=== PATIENT | female | born 1985 | race Caucasian/White ===

== ENCOUNTER → 2018-04-13 09:57 | Outpatient (CLI) | payer OTHER, SELFPAY | PROVIDERS: PCP Family Medicine; Visit Provider Internal Medicine Gastroenterology | DX: R19.7 Diarrhea, unspecified (principal); Z53.9 Procedure and treatment not carried out, unspecified reason ==

== ENCOUNTER → 2018-12-03 07:39 | Outpatient (CLI) | payer OTHER, SELFPAY ==
[2018-12-03 08:07] LABS: Appearance Urine UA CLOUDY; Bilirubin Urine UA NEGATIVE (NEGATIVE); Color Urine UA YELLOW; Glucose Urine UA NEGATIVE (Negative); Ketones Urine UA NEGATIVE (NEGATIVE); Leukocyte Esterase Urine UA 1+ (NEGATIVE); Nitrite Urine UA POSITIVE (Negative); Occult Blood Urine UA 3+ (Negative); Protein Urine UA 2+ (Negative); Specific Gravity Urine UA >=1.030 (1.000-1.035); Urobilinogen Urine UA 0.2 E.U./dL (0.2)
[2018-12-03 08:14] LABS: Bacteria Urine Many (>30); Culture Indicated Urine Specimen Cultured; RBC Urine 30-100/HPF (0-5/HPF); WBC Urine >100/HPF (0-5/HPF)
== END ==
PROVIDERS: PCP Family Medicine; Visit Provider Family Medicine
DX: R30.0 Dysuria (principal)
CPT/HCPCS: 81001; 87077; 87086; 87186

== ENCOUNTER 2019-08-02 23:53 | Emergency (ER) | payer OTHER, SELFPAY | END 2019-08-03 02:09 | disposition home or self-care (01) | LOC: ED 03-14 13:14 | PROVIDERS: Emergency Provider Emergency Medicine; PCP Family Medicine | CPT/HCPCS: 93005; 99282 ==

== ENCOUNTER 2019-08-02 23:53 | Emergency (ER) | payer OTHER, SELFPAY ==
[2019-08-03 00:04] VITALS: BP 119/66; PULSE 105; RESP 14; TEMP 36.8; O2SAT 100
[2019-08-03] MEDS: SODIUM CHLORIDE 0.9% 1,000 ML 1000 ML IV (00:47)
--- NOTE | 2019-08-03 00:48 | ED_ITS ---
HPI - Syncope General Chief Complaint: Syncope Stated Complaint: collapsed at home Time Seen by Provider: 08/03/19 00:21 Source: patient and family Mode of arrival: ambulatory Limitations: no limitations History of Present Illness HPI narrative: 34-year-old female former smoker with history of bipolar presents a syncopal episode which was witnessed by her . Three weeks ago the patient stopped using marijuana and over the past week or so the patient has become increasingly anxious and has had thoughts of self-harm without a plan or any intent to act. She has a therapist and a prescriber in the community and had recently been given a prescription for Seroquel and also takes Lyrica. Today the patient smoked marijuana for the 1st time in 3 weeks, took double the dose of her normal ear cup, and 4 times the dose of her normal Seroquel and then began to feel poorly, collapsed and was unresponsive for about 5 seconds before a near complete return to normal. She did not have any injuries, did not bite her tongue and did not lose control of her bladder. She denies any ongoing suicidal or homicidal ideation. She has an appointment later today with her therapist complaint: loss of consciousness Onset (ago): hour(s) Prodromal symptoms: lightheaded Witnessed: yes - by bystander Context: new medication and illicit drug use Injuries sustained associated with event: none Current symptoms: lightheaded Treatments prior to arrival: none Related Data Home Medications Medication Instructions Recorded Confirmed acetylcarnitine 500 mg capsule 500 mg PO DAILY cap 07/23/18 05/25/19 biotin 5 mg capsule 8 mg PO DAILY cap 07/23/18 05/25/19 digestive enzymes 1 cap PO TID cap 07/23/18 05/25/19 magnesium glycinate 100 mg tablet 120 mg PO TID tab 07/23/18 05/25/19 methylsulfonylmethane 1,000 mg 3,000 mg PO ONCE cap 07/23/18 05/25/19 capsule vit [id number] factor-folic 1,000 tab PO tab 07/23/18 05/25/19 acid cmb#2 500 mcg-20 mg-800 mcg tablet glutamine 500 mg capsule 9 gram PO DAILY cap 12/11/18 05/25/19 Previous Rx's Medication Instructions Recorded pregabalin 100 mg capsule 100 mg PO BID #180 cap 03/15/19 promethazine 25 mg tablet 25 mg PO Q6HP PRN #60 tab 03/30/19 propranolol 20 mg tablet 20 mg PO BID #180 tab 03/30/19 dextroamphetamine-amphetamine ER 20 mg PO DAILY #30 cap 04/02/19 20 mg 24hr capsule,extend release dextroamphetamine-amphetamine ER 20 mg PO QAM #30 cap 05/25/19 20 mg 24hr capsule,extend release ziprasidone HCl 60 mg capsule 60 mg PO QPM #30 cap 05/27/19 quetiapine 25 mg tablet 25 mg PO BEDTIME #30 tab 07/22/19 Allergies Allergy/AdvReac Type Severity Reaction Status Date / Time duloxetine [DULOXETINE] Allergy Mild MANIC Unverified 03/15/19 08:52 Sulfa (Sulfonamide Allergy Mild HIVES Unverified 03/15/19 08:52 Antibiotics) [SULFA (SULFONAMIDE ANTIBIOTICS)] methylprednisolone Allergy Unknown Unverified 03/15/19 08:52 [From MEDROL] venlafaxine AdvReac Verified 03/15/19 08:52 Review of Systems Constitutional Constitutional: Denies chills, Denies fatigue, Denies fever(s), Denies frequent falls, Denies lethargy and Denies weakness Eyes Eyes: Denies change in vision, Denies eye discharge, Denies irritation and Denies loss of vision ENT Ears, Nose, Mouth, and Throat: Denies change in voice, Denies dizziness, Denies neck pain, Denies sore throat and Denies throat swelling Cardiovascular Cardiovascular: Denies chest pain, Reports syncope, Denies irregular heart rhythm, Reports lightheadedness, Denies palpitations, Denies dyspnea, Denies dyspnea on exertion and Denies orthopnea Respiratory Respiratory: Denies cough, Denies dyspnea, Denies dyspnea on exertion and Denies wheezing Gastrointestinal Gastrointestinal: Denies abdominal pain, Denies change in bowel habits, Denies diarrhea, Denies nausea and Denies vomiting Genitourinary Genitourinary: Denies hematuria, Denies flank pain, Denies urinary incontinence and Denies urinary urgency Musculoskeletal Musculoskeletal: Denies back pain, Denies muscle weakness, Denies neck pain, Denies numbness and Denies tingling Integumentary/Breasts Skin/Breast: Denies pruritus, Denies erythema, Denies rash and Denies wounds Neurologic Neurologic: Denies behavioral changes, Denies confusion, Denies dizziness, Reports syncope, Denies frequent falls, Denies loss of vision, Denies numbness, Denies tingling and Denies weakness Psychiatric Psychiatric: Denies anxiety, Denies behavioral changes, Denies confusion, Denies depression, Denies homicidal ideation and Denies suicidal ideation Endocrine Endocrine: Denies fatigue, Denies flushing and Denies palpitations Hematologic/Lymphatic Hematologic/Lymphatic: Denies easy bruising Allergic/Immunologic Allergic/Immunologic: Denies urticaria, Denies throat swelling and Denies wheezing FOR[facility]LY [facility] Medical History Abnormal Pap smear of cervix (Resolved 2005) Acne (Chronic 1995) ADHD (attention deficit hyperactivity disorder) (Chronic 1993) Anorexia nervosa (Chronic 1998) Anxiety (Chronic 1998) Bipolar disorder (Chronic 2005) Chicken pox (Resolved 1988) Chronic back pain (Chronic 1994) Chronic headaches (Chronic 1999) Crohn disease (Chronic) Depression (Chronic 2005) Foot pain (Chronic 2003) Fractures (Resolved 2003) Gastritis (Chronic 2014) Migraines (Chronic 1999) Ovarian cyst (Chronic 2014) Pelvis tilted (Chronic 2007) Personality disorder (Chronic 2005) PTSD (post-traumatic stress disorder) (Chronic 2005) Shoulder pain (Chronic 2005) Surgical History Anesthesia (Resolved) History of bilateral inguinal hernia repair (Resolved 1988) History of third molar tooth extraction (Resolved 1999) Status post laparoscopic cholecystectomy (Resolved 2009) Family History (Updated 08/18/18 @ 12:42 by Ioana Stafford) Father Age: 63 Cancer Diabetes mellitus Hypertension High cholesterol Mental health problem Prostate cancer Grandfather Cancer Hypertension Colon cancer Grandmother Cancer Diabetes mellitus Heart disease Hypertension High cholesterol Mental health problem Stroke Breast cancer Dementia Grandmother Diabetes mellitus Heart disease Hypertension Mental health problem Sister Age: 39 Hypertension Mother No problems noted. Grandfather No problems noted. Social History marital status: number of children: 1 household members: family lives independently: Yes caregiver/support person: No housing: house Smoking Status: Former smoker second hand exposure: No alcohol intake: current substance use type: does not use Family History Father Age: 63 Cancer Diabetes mellitus Hypertension High cholesterol Mental health problem Prostate cancer Grandfather Cancer Hypertension Colon cancer Grandmother Cancer Diabetes mellitus Heart disease Hypertension High cholesterol Mental health problem Stroke Breast cancer Dementia Grandmother Diabetes mellitus Heart disease Hypertension Mental health problem Sister Age: 39 Hypertension Mother No problems noted. Grandfather No problems noted. Social History marital status: number of children: 1 household members: family lives independently: Yes caregiver/support person: No housing: house Smoking Status: Former smoker second hand exposure: No alcohol intake: current substance use type: does not use Exam Narrative Exam Narrative: GENERAL: [34] year old patient appears stated age. Well- nourished, well-developed patient, in mild distress. HEAD: Atraumatic. Normocephalic. EYES: Pupils equal round and reactive. Extraocular motions intact. No scleral icterus. No injection or drainage. ENT: Nose without bleeding, purulent drainage. Throat without erythema, tonsillar hypertrophy or exudate. Airway patent. NECK: Trachea midline. Non tender CARDIOVASCULAR: Regular rate and rhythm without murmurs, gallops, or rubs. RESPIRATORY: Clear to auscultation. Breath sounds equal bilaterally. No wheezes, rales, or rhonchi. GASTROINTESTINAL: Abdomen soft, non-tender, nondistended. EXTREMITIES: No edema or joint tenderness. BACK: Nontender without deformity or crepitance. No flank tenderness. NEURO: AOx3. SKIN: No rash or erythema of visible areas Initial Vital Signs Initial Vital Signs: Vital Signs Temperature 98.2 F 08/03/19 00:04 Pulse Rate 105 H 08/03/19 00:04 Respiratory Rate 14 08/03/19 00:04 Blood Pressure 119/66 08/03/19 00:04 Pulse Oximetry 100 08/03/19 00:04 Course Orders Ordered: ED Orders 08/03/19 00:40 Complete Blood Count AUTO DIFF Stat Comprehensive Metabolic Panel Stat Magnesium Stat Prolactin Stat Troponin & CK Cardiac Panel Stat Discontinued Medications Sodium Chloride (Normal Saline 0.9%) 1,000 mls @ 1,000 mls/hr IV BOLUS ONE Stop: 08/03/19 01:22 Last Admin: 08/03/19 00:47 Dose: 1,000 mls/hr Documented by: BETTY Vital Signs Vital signs: Vital Signs - 8 hr 08/03/19 00:04 Temperature 98.2 F Pulse Rate 105 H Respiratory Rate 14 Blood Pressure 119/66 Pulse Oximetry 100 MDM - Syncope Lab Data Result diagrams: 08/03/19 00:40 08/03/19 00:40 Labs: Lab Results 08/03/19 08/03/19 08/03/19 Range/Units 00:40 00:40 00:40 WBC 6.6 (4.5-11.0) X10^3/uL RBC 4.39 (4.0-5.2) X10^6/uL Hgb 13.3 (12.0-16.0) g/dL Hct 39.3 (36-46) % MCV 89.5 (80-100) fL MCH 30.4 (26-34) PG MCHC 33.9 (30-36) % RDW 13.7 (11.6-14.8) % Plt Count 269 (150-400) X10^3/uL Neut % (Auto) 64.0 (50-75) % Lymph % (Auto) 28.8 (25-40) % Haines % (Auto) 4.8 (3-14) % Eos % (Auto) 1.7 L (2-4) % Baso % (Auto) 0.7 (0-2) % Neut # (Auto) 4200 (5858-8006) /uL Lymph # (Auto) 1900 (8458-2195) /uL Haines # (Auto) 300 (0-900) /uL Eos # (Auto) 100 (0-450) /uL Baso # (Auto) 0 (0-100) /uL Sodium 138 (137-145) mmol/L Potassium 3.4 (3.4-5.1) mmol/L Chloride 104 (98-107) mmol/L Carbon Dioxide 28 (22-32) mmol/L BUN 19 H (7-17) mg/dL Creatinine 0.60 (0.52-1.04) mg/dL Estimated GFR > 60.0 (>60) mL/min BUN/Creatinine Ratio 31.7 H (6-22) Glucose 154 H (70-100) mg/dL Calcium 8.7 (8.4-10.2) mg/dL Magnesium 2.0 (1.6-2.3) mg/dL Total Bilirubin 0.3 (0.2-1.3) mg/dL AST 21 (14-36) IU/L ALT 20 (9-52) IU/L Alkaline Phosphatase 62 (38-126) U/L Total Creatine Kinase 58 (30-135) U/L CK-MB (CK-2) TNP CK-MB (CK-2) Rel Index TNP Troponin I < 0.012 (0.01-0.034) ng/mL Total Protein 6.7 (6.3-8.2) g/dL Albumin 4.1 (3.5-5.0) g/dL Globulin 2.6 (1.7-4.1) g/dL Albumin/Globulin Ratio 1.6 (1.0-2.8) Prolactin 13.5 (3.0-18.6) ng/mL Urine Dip Bedside Urine Glucose Negative Bedside Urine Bilirubin - Negative Bedside Urine Ketone ++ 40 Urine Specific [place] 1.025 Bedside Urine Occult Blood +/- Bedside Urine pH 5.5 Bedside Urine Protein +/- 15 Bedside Urine Urobilinogen +/- 1mg Bedside Urine Nitrite - Negative Bedside Urine Leukocytes - Negative Esterase ECG Data Attestation: I personally reviewed and interpreted this ECG as follows: Prior ECG tracings: not available for review Interpretation: EKG is normal sinus rhythm rate [ 82] and free of any signs of ischemia or ectopy. No ST segmental elevation or depression. No T wave inversions MDM Narrative Medical decision making narrative: Multiple etiologies for patient's symptoms considered including: [Dehydration versus accidental overdose versus multifactorial (change in medication dosages with addition of THC) versus other] Patient's symptoms improved or duration of stay with above-stated therapies. Findings and discharge diagnosis discussed with patient/family followed by verbalization of understanding Return precautions discussed with patient/family whom verbalize understanding. Discharge Plan Departure Patient Disposition: Home Clinical Impression: Syncope and collapse Instructions: DI for Syncope in Adults (Fainting) Activity Restrictions/Additional Instructions: *You have been diagnosed with [syncope and collapse, likely due to combination of alterations in dosages of medications and consumption of THC] *What to do: *Take medications as directed *Follow up with your therapist later today as planned *Return to ER if you should have any new, worsening or concerning symptoms Prescriptions: No Action methylsulfonylmethane 1,000 mg capsule 3,000 mg PO ONCE RF: 0 digestive enzymes capsule 1 cap PO TID RF: 0 biotin 5 mg capsule 8 mg PO DAILY RF: 0 acetylcarnitine 500 mg capsule 500 mg PO DAILY RF: 0 magnesium glycinate [Mag Glycinate] 100 mg tablet 120 mg PO TID RF: 0 vit [id number] fact-FA cmb #2 [Intrinsi [id number]] 500-20-800 mcg-mg-mcg tablet 1,000 tab PO RF: 0 glutamine [L-Glutamine] 500 mg capsule 9 gram PO DAILY RF: 0 dextroamphetamine-amphetamine 20 mg capsule,extended release 24hr 20 mg PO DAILY Qty: 30 RF: 0 dextroamphetamine-amphetamine [Adderall XR] 20 mg capsule,extended release 24hr 20 mg PO QAM Qty: 30 RF: 0 promethazine 25 mg tablet 25 mg PO Q6HP PRN (Reason: nausea and vomiting) Qty: 60 RF: 12 propranolol 20 mg tablet 20 mg PO BID Qty: 180 RF: 3 ziprasidone HCl 60 mg capsule 60 mg PO QPM Qty: 30 RF: 3 quetiapine 25 mg tablet 25 mg PO BEDTIME Qty: 30 RF: 0 Lyrica 100 mg capsule 100 mg PO BID Qty: 180 RF: 3 Referrals: Mayte Martinez MD [Primary Care Provider] -
[2019-08-03 01:10] LABS: Alanine Aminotransferase 20 IU/L (9-52); Albumin 4.1 g/dL (3.5-5.0); Albumin Globulin Ratio 1.6 (1.0-2.8); Alkaline Phosphatase 62 U/L (38-126); Aspartate Aminotransferase 21 IU/L (14-36); BUN Creatinine Ratio 31.7 (6-22); Bilirubin Total 0.3 mg/dL (0.2-1.3); Blood Urea Nitrogen 19 mg/dL (7-17); Calcium 8.7 mg/dL (8.4-10.2); Carbon Dioxide 28 mmol/L (22-32); Chloride 104 mmol/L (98-107); Creatine Kinase 58 U/L (30-135); Estimated Glomerular Filt Rate > 60.0 mL/min (>60); Globulin 2.6 g/dL (1.7-4.1); Glucose 154 mg/dL (70-100); HEMOLYSIS < 15 (0-50); Potassium 3.4 mmol/L (3.4-5.1); Sodium 138 mmol/L (137-145); Total Protein 6.7 g/dL (6.3-8.2)
[2019-08-03 01:17] LABS: Add Manual Diff / Slide Review NO; Basophils Absolute Auto 0 /uL (0-100); Basophils Percent Auto 0.7 % (0-2); Eosinophils Absolute Auto 100 /uL (0-450); Eosinophils Percent Auto 1.7 % (2-4); Hematocrit 39.3 % (36-46); Hemoglobin 13.3 g/dL (12.0-16.0); Lymphocytes Absolute Auto 1900 /uL (1100-4500); Lymphocytes Percent Auto 28.8 % (25-40); Mean Corpuscular HGB Conc 33.9 % (30-36); Mean Corpuscular Hemoglobin 30.4 PG (26-34); Mean Corpuscular Volume 89.5 fL (80-100); Monocytes Absolute Auto 300 /uL (0-900); Monocytes Percent Auto 4.8 % (3-14); Neutrophils Absolute Auto 4200 /uL (1500-7000); Platelet Count 269 X10^3/uL (150-400); Red Blood Cell Count 4.39 X10^6/uL (4.0-5.2); Red Cell Distribution Width 13.7 % (11.6-14.8); White Blood Cell Count 6.6 X10^3/uL (4.5-11.0)
[2019-08-03 01:22] LABS: Troponin I < 0.012 ng/mL (0.01-0.034)
[2019-08-03 01:46] LABS: Prolactin 13.5 ng/mL (3.0-18.6)
[2019-08-03 02:07] VITALS: BP 108/66; PULSE 79; RESP 14; O2SAT 99
== END 2019-08-03 02:09 | disposition home or self-care (01) ==
PROVIDERS: Emergency Provider Emergency Medicine; PCP Family Medicine
DX: R55 Syncope and collapse (principal)
CPT/HCPCS: 36591; 80053; 81003; 82550; 83735; 84146; 84484; 85025; 96360; 99283; 99284

== ENCOUNTER → 2019-12-22 13:11 | Outpatient (CLI) | payer OTHER, SELFPAY ==
[2019-12-22 13:22] LABS: Bacteria Urine None Seen
[2019-12-22 14:19] LABS: Appearance Urine UA CLEAR; Bilirubin Urine UA NEGATIVE (NEGATIVE); Color Urine UA YELLOW; Glucose Urine UA NEGATIVE (Negative); Ketones Urine UA NEGATIVE (NEGATIVE); Leukocyte Esterase Urine UA TRACE (NEGATIVE); Nitrite Urine UA NEGATIVE (Negative); Occult Blood Urine UA TRACE-LYSED (Negative); Protein Urine UA NEGATIVE (Negative); Urobilinogen Urine UA 0.2 E.U./dL (0.2)
[2019-12-22 14:21] LABS: pH Urine UA 6.5 (4.5-8.0)
[2019-12-22 14:26] LABS: RBC Urine 0-1/HPF (0-5/HPF)
[2019-12-22 14:27] LABS: Culture Indicated Urine Cult Not Indicated; WBC Urine 0-1/HPF (0-5/HPF)
== END ==
PROVIDERS: PCP Family Medicine; Visit Provider Family Medicine
DX: R30.0 Dysuria (principal)
CPT/HCPCS: 81001

== ENCOUNTER → 2020-02-15 14:28 | Outpatient (CLI) | payer OTHER, SELFPAY ==
[2020-02-15 15:38] LABS: C-Reactive Protein Quant < 0.5 mg/dL (<1.0)
[2020-02-15 15:39] LABS: Prolactin 10.9 ng/mL (3.0-18.6)
[2020-02-15 16:09] LABS: Follicle Stimulating Hormone 6.52 mIU/mL; Luteinizing Hormone 1.82 mIU/mL
[2020-02-15 16:22] LABS: TSH w/ Reflex to FT4 0.94 uIU/mL (0.47-4.68)
[2020-02-15 16:25] LABS: Estradiol, Total 18.2 pg/mL
[2020-02-17 09:27] LABS: Estrogen 71 pg/mL (.)
== END ==
PROVIDERS: PCP Family Medicine; Referring Provider Family Medicine; Visit Provider Family Medicine
DX: N91.2 Amenorrhea, unspecified (principal); K50.90 Crohn's disease, unspecified, without complications
CPT/HCPCS: 36415; 82670; 82672; 83001; 83002; 84146; 84443; 86140

== ENCOUNTER 2020-05-20 16:52 | Emergency (ER) | payer OTHER, SELFPAY ==
--- NOTE | 2020-05-20 16:59 | PC.NURSE ---
Pt refusing gown, covering of any kind- wants to be naked. Told her that we could not accommodate that request in the ED and maintain her privacy. She agreed to be covered by a gown.
[2020-05-20 17:13] VITALS: BP 125/56; PULSE 82; RESP 16; TEMP 36.8; O2SAT 99; BMI 58.6
[2020-05-20] MEDS: SODIUM CHLORIDE 0.9% 1,000 ML 1000 ML IV (17:22)
[2020-05-20] MEDS: ONDANSETRON 4 MG/2 ML INJ IV (17:23)
[2020-05-20 17:33] LABS: Add Manual Diff / Slide Review NO; Basophils Absolute Auto 0 /uL (0-100); Basophils Percent Auto 0.3 % (0-2); Eosinophils Absolute Auto 300 /uL (0-450); Eosinophils Percent Auto 3.5 % (2-4); Hematocrit 41.4 % (36-46); Hemoglobin 14.5 g/dL (12.0-16.0); Lymphocytes Absolute Auto 2400 /uL (1100-4500); Lymphocytes Percent Auto 25.5 % (25-40); Mean Corpuscular Hemoglobin 31.8 PG (26-34); Mean Corpuscular Volume 90.9 fL (80-100); Monocytes Absolute Auto 300 /uL (0-900); Monocytes Percent Auto 3.7 % (3-14); Neutrophils Absolute Auto 6300 /uL (1500-7000); Platelet Count 254 X10^3/uL (150-400); Red Blood Cell Count 4.56 X10^6/uL (4.0-5.2); Red Cell Distribution Width 13.6 % (11.6-14.8); White Blood Cell Count 9.4 X10^3/uL (4.5-11.0)
[2020-05-20 17:35] LABS: Prothrombin Time 11.6 SECONDS (10.1-12.7)
[2020-05-20 17:38] LABS: PTT Partial Thromboplastin Tim 28 SECONDS (26.4-36.2)
--- NOTE | 2020-05-20 17:40 | ED_ITS ---
HPI - Abdominal Pain <Janie ArriagaALONSO - Last Filed: 05/20/20 20:56> General Chief Complaint: Abdominal Pain Stated Complaint: abd pain Time Seen by Provider: 05/20/20 16:55 Source: EMS Mode of arrival: EMS History of Present Illness HPI narrative: 35yo female with a history of Crohn's, presents emergency depar tment complaining of diffuse abdominal pain starting today. Patient states she has had watery diarrhea for the past 3-4 days. She was able to eat some food today, she then felt sudden severe abdominal pain in RUQ and LUQ pain with vomiting. Patient denies taking any medications for Crohn's disease, states she has been in remission for the past year. Has not seen her GI doctor over the past year due to lack of symptoms. Patient denies any sick contacts at this time. She reports her abdominal pain is a 5/10 constant aching pain with intermittent surgeons of severe 8/10 pain that lasted few minutes. Denies any other symptoms such as vaginal discharge, dysuria, chest pain, shortness of br eath, fevers, dizziness, head trauma, or any other concerns. Related Data Home Medications Medication Instructions Recorded Confirmed digestive enzymes 1 cap PO TID cap 07/23/18 04/18/20 propranolol 20 mg tablet 20 mg PO BID PRN tab 10/12/19 04/18/20 l-theanine 200 mg PO TID 04/18/20 magnesium glycinate 100 mg tablet 200 mg PO TID tab 04/18/20 04/18/20 Previous Rx's Medication Instructions Recorded promethazine 25 mg tablet 25 mg PO Q6HP PRN #60 tab 03/30/19 ziprasidone HCl 60 mg capsule 60 mg PO .QOD #45 cap 03/08/20 lamotrigine 100 mg tablet 150 mg PO DAILY #45 tab 03/13/20 pregabalin 100 mg capsule See Rx Instructions .ROUTE 03/13/20 .COMPLEX #180 capsule ziprasidone HCl 40 mg capsule 40 mg PO .QOD #90 cap 04/11/20 lithium carbonate 300 mg capsule 600 mg PO BEDTIME #180 cap 04/18/20 quetiapine 50 mg tablet See Rx Instructions PO DAILY 30 05/09/20 Days #90 tab hydrocodone-acetaminophen [[place]] 1 tab PO Q4-6H PRN #14 tab 05/20/20 ondansetron 4 mg PO Q6H PRN #14 tab 05/20/20 prednisone 20 mg PO DAILY 7 Days #7 tab 05/20/20 Allergies Allergy/AdvReac Type Severity Reaction Status Date / Time duloxetine [DULOXETINE] Allergy Mild MANIC Verified 04/18/20 14:03 Sulfa (Sulfonamide Allergy Mild HIVES Verified 04/18/20 14:03 Antibiotics) [SULFA (SULFONAMIDE ANTIBIOTICS)] methylprednisolone Allergy Unknown Verified 04/18/20 14:03 [From MEDROL] venlafaxine AdvReac Verified 04/18/20 14:03 Review of Systems <ALONSO Bocanegra - Last Filed: 05/20/20 20:56> Review of Systems Narrative: REVIEW OF SYSTEMS: GENERAL: Denies fever, chills, malaise, or wt. loss. HENT: No head trauma. CARDIOVASCULAR: No chest pain. RESPIRATORY: No shortness of breath or cough. GASTROINTESTINAL: Complains of upper left and right quadrant abdominal pain and reports diarrhea vomiting, see HPI GENITOURINARY: No flank pain, urinary incontinence, hesitancy, frequency, or dys uria. No vaginal discharge or dyspareunia. Denies concerns for STIs MUSCULOSKELETAL: No pain, weakness, or trauma. INTEGUMENTARY: No rash, lesions, or pruritus. NEURO: No headaches. PSYCH: No behavior or mood changes. Patient History <ALONSO Bocanegra - Last Filed: 05/20/20 20:56> Medical History Abnormal Pap smear of cervix (Resolved 2005) Acne (Chronic 1995) ADHD (attention deficit hyperactivity disorder) (Chronic 1993) Anorexia nervosa (Chronic 1998) Anxiety (Chronic 1998) Bipolar disorder (Chronic 2005) Chicken pox (Resolved 1988) Chronic back pain (Chronic 1994) Chronic headaches (Chronic 1999) Crohn disease (Chronic) Depression (Chronic 2005) Foot pain (Chronic 2003) Fractures (Resolved 2003) Gastritis (Chronic 2014) Migraines (Chronic 1999) Ovarian cyst (Chronic 2014) Pelvis tilted (Chronic 2007) Personality disorder (Chronic 2005) PTSD (post-traumatic stress disorder) (Chronic 2005) Shoulder pain (Chronic 2005) Surgical History Anesthesia (Resolved) History of bilateral inguinal hernia repair (Resolved 1988) History of third molar tooth extraction (Resolved 1999) Status post laparoscopic cholecystectomy (Resolved 2009) Family History Father Age: 63 Cancer Diabetes mellitus Hypertension High cholesterol Mental health problem Prostate cancer Grandfather Cancer Hypertension Colon cancer Grandmother Cancer Diabetes mellitus Heart disease Hypertension High cholesterol Mental health problem Stroke Breast cancer Dementia Grandmother Diabetes mellitus Heart disease Hypertension Mental health problem Sister Age: 39 Hypertension Mother No problems noted. Grandfather No problems noted. Social History marital status: number of children: 1 household members: family lives independently: Yes caregiver/support person: No housing: house Smoking Status: Former smoker second hand exposure: No alcohol intake: current substance use type: does not use Smoking Status: Former smoker alcohol intake frequency: 0-2 drinks per day Substance Use Type: marijuana Exam <ALONSO Bocanegra - Last Filed: 05/20/20 20:56> Initial Vital Signs Initial Vital Signs: Vital Signs Temperature 98.3 F 05/20/20 17:13 Pulse Rate 82 05/20/20 17:13 Respiratory Rate 16 05/20/20 17:13 Blood Pressure 125/56 L 05/20/20 17:13 Pulse Oximetry 99 05/20/20 17:13 PHYSICAL EXAMINATION: GENERAL: Well groomed, alert, and cooperative. Answers questions promptly and appropriately. Vital signs noted. HENT: Normocephalic, atraumatic. Hearing intact. Oral mucosa is pink and moist. EYES: Conjunctiva pink, sclera white, no periorbital swelling. CARDIOVASCULAR: S1 and S2 sounds normal. Regular rate and rhythm, no murmurs, c licks, or bruits. No pedal edema. RESPIRATORY: Normal respiratory rate, trachea midline, airway patent. No stridor, nasal flaring or accessory muscle use. Lungs are clear in all chavarria without wheeze, rhonchi, or crackles. GASTROINTESTINAL: Bowel sounds normoactive. Abdomen is soft, tenderness to upper quadrants, LUQ more tender than RUQ with palpation. No organomegaly, no palpable masses. GENITALURINARY: No flank tenderness. MUSCULOSKELETAL: Normal gait and coordination. Equal tone and mass bilaterally. EXTREMITIES: CMS intact, no pedal edema. SKIN: Warm, dry, soft, appropriate color for ethnicity. No lesions, rashes, or wounds to visualized areas. NEURO: Alert and Oriented X 3. Good coordination. No ataxia, or sensory deficits, or cognitive issues. PSYCH: Appropriate affect and mood. <Baljit Yost DO - Last Filed: 05/21/20 04:04> Initial Vital Signs Initial Vital Signs: Vital Signs Temperature 98.3 F 05/20/20 17:13 Pulse Rate 82 05/20/20 17:13 Respiratory Rate 16 05/20/20 17:13 Blood Pressure 125/56 L 05/20/20 17:13 Pulse Oximetry 99 05/20/20 17:13 Course <ALONSO Bocanegra - Last Filed: 05/20/20 20:56> Course Course Narrative: Patient was initially given Zofran and fluids to help with symptoms, Toradol was administered to help with pain. Approximately 30-60 minutes after administration of medication, patient reported significantly improved pain, resolved nausea, in stated she is feeling much better. I discussed with patient CT finding of Crohn's exacerbation as well as pancreatitis. I discussed admission versus p.o. trial and clear liquid diet at home. Patient opted for p.o. trial, was able to drink a half a glass of water without worsening nausea or pain. I discussed with patient the importance of adhering to a liquid diet over the next few days, we discussed pain medications and nausea medications as well. Patient agreed she is ready for discharge. Discussed with patient the benefits and wrist to prednisone including increased anxiety, GI upset, and insomnia. Patient does report she has bipolar and is nervous about increased anxiety, patient was encouraged to try a half dose initially to see how it affects her. Orders Ordered: Discontinued Medications Hydrocodone Bitart/Acetaminophen (Vicodin 5/325 Prepack) 1 bottle MISC SEEINSTR ONE Stop: 05/20/20 20:21 Last Admin: 05/20/20 20:28 Dose: 1 bottle Documented by: GERARD Sodium Chloride (Normal Saline 0.9%) 1,000 mls @ 1,000 mls/hr IV BOLUS ONE Stop: 05/20/20 18:07 Last Infusion: 05/20/20 18:38 Dose: 0 mls/hr Documented by: Admin: 05/20/20 17:22 Dose: 1,000 mls/hr Documented by: JENNIFER Sodium Chloride (Normal Saline 0.9%) 1,000 mls @ 150 mls/hr IV CONT MITCHELL Last Infusion: 05/20/20 20:28 Dose: 0 mls/hr Documented by: Admin: 05/20/20 18:46 Dose: 150 mls/hr Documented by: JENNIFER Ketorolac Tromethamine (Toradol) 30 mg IV NOW ONE Stop: 05/20/20 17:39 Last Admin: 05/20/20 17:50 Dose: 30 mg Documented by: JENNIFER Ondansetron HCl (Zofran) 4 mg IV NOW ONE Stop: 05/20/20 17:08 Last Admin: 05/20/20 17:23 Dose: 4 mg Documented by: JENNIFER Ondansetron HCl (Zofran Odt Prepack) 1 bottle MISC SEEINSTR ONE Stop: 05/20/20 20:21 Last Admin: 05/20/20 20:28 Dose: 1 bottle Documented by: GERARD Consultations Consultation #1: Patient staffed with Dr. Yost, discussed test results and plan of care. Vital Signs Vital signs: Vital Signs - 8 hr 05/20/20 20:32 Temperature 98.6 F Pulse Rate 85 Respiratory Rate 14 Blood Pressure 101/57 L Pulse Oximetry 100 <Baljit Yost, DO - Last Filed: 05/21/20 04:04> Orders Ordered: Discontinued Medications Hydrocodone Bitart/Acetaminophen (Vicodin 5/325 Prepack) 1 bottle MISC SEEINSTR ONE Stop: 05/20/20 20:21 Last Admin: 05/20/20 20:28 Dose: 1 bottle Documented by: GERARD Sodium Chloride (Normal Saline 0.9%) 1,000 mls @ 1,000 mls/hr IV BOLUS ONE Stop: 05/20/20 18:07 Last Infusion: 05/20/20 18:38 Dose: 0 mls/hr Documented by: Admin: 05/20/20 17:22 Dose: 1,000 mls/hr Documented by: JENNIFER Sodium Chloride (Normal Saline 0.9%) 1,000 mls @ 150 mls/hr IV CONT MITCHELL Last Infusion: 05/20/20 20:28 Dose: 0 mls/hr Documented by: Admin: 05/20/20 18:46 Dose: 150 mls/hr Documented by: JENNIFER Ketorolac Tromethamine (Toradol) 30 mg IV NOW ONE Stop: 05/20/20 17:39 Last Admin: 05/20/20 17:50 Dose: 30 mg Documented by: JENNIFER Ondansetron HCl (Zofran) 4 mg IV NOW ONE Stop: 05/20/20 17:08 Last Admin: 05/20/20 17:23 Dose: 4 mg Documented by: JENNIFER Ondansetron HCl (Zofran Odt Prepack) 1 bottle MISC SEEINSTR ONE Stop: 05/20/20 20:21 Last Admin: 05/20/20 20:28 Dose: 1 bottle Documented by: GERARD Vital Signs Vital signs: Vital Signs - 8 hr 05/20/20 20:32 Temperature 98.6 F Pulse Rate 85 Respiratory Rate 14 Blood Pressure 101/57 L Pulse Oximetry 100 MDM - Abdominal Pain <ALONSO Bocanegra - Last Filed: 05/20/20 20:56> Medical Records Attestation: I reviewed the patient's medical records. Lab Data Attestation: I reviewed the patient's lab results. Result diagrams: 05/20/20 17:09 05/20/20 17:09 Labs: Lab Results 05/20/20 05/20/20 05/20/20 Range/Units 17:09 17:09 17:09 WBC 9.4 (4.5-11.0) X10^3/uL RBC 4.56 (4.0-5.2) X10^6/uL Hgb 14.5 (12.0-16.0) g/dL Hct 41.4 (36-46) % MCV 90.9 (80-100) fL MCH 31.8 (26-34) PG MCHC 35.0 (30-36) % RDW 13.6 (11.6-14.8) % Plt Count 254 (150-400) X10^3/uL Neut % (Auto) 67.0 (50-75) % Lymph % (Auto) 25.5 (25-40) % [place] % (Auto) 3.7 (3-14) % Eos % (Auto) 3.5 (2-4) % Baso % (Auto) 0.3 (0-2) % Neut # (Auto) 6300 (1300-4322) /uL Lymph # (Auto) 2400 (8338-1021) /uL [place] # (Auto) 300 (0-900) /uL Eos # (Auto) 300 (0-450) /uL Baso # (Auto) 0 (0-100) /uL PT 11.6 (10.1-12.7) SECONDS INR 1.0 (0.9-1.3) APTT 28 (26.4-36.2) SECONDS Sodium 137 (137-145) mmol/L Potassium 3.5 (3.4-5.1) mmol/L Chloride 103 (98-107) mmol/L Carbon Dioxide 26 (22-32) mmol/L BUN 19 H (7-17) mg/dL Creatinine 0.82 (0.52-1.04) mg/dL Estimated GFR > 60.0 (>60) mL/min BUN/Creatinine Ratio 23.2 H (6-22) Glucose 132 H (70-100) mg/dL Calcium 9.7 (8.4-10.2) mg/dL Total Bilirubin 0.8 (0.2-1.3) mg/dL AST 233 H (14-36) IU/L ALT 92 H (<35) IU/L Alkaline Phosphatase 82 (38-126) U/L Total Protein 7.0 (6.3-8.2) g/dL Albumin 4.4 (3.5-5.0) g/dL Globulin 2.6 (1.7-4.1) g/dL Albumin/Globulin Ratio 1.7 (1.0-2.8) Lipase 5562 H (23-300) U/L Urine RBC (0-5/HPF) Urine WBC (0-5/HPF) Ur Squamous Epith Cells (0-5/HPF) Amorphous Sediment Urine Bacteria (None) Urine Mucus (Negative) Ur Culture Indicated? 05/20/20 Range/Units 17:09 WBC (4.5-11.0) X10^3/uL RBC (4.0-5.2) X10^6/uL Hgb (12.0-16.0) g/dL Hct (36-46) % MCV (80-100) fL MCH (26-34) PG MCHC (30-36) % RDW (11.6-14.8) % Plt Count (150-400) X10^3/uL Neut % (Auto) (50-75) % Lymph % (Auto) (25-40) % [place] % (Auto) (3-14) % Eos % (Auto) (2-4) % Baso % (Auto) (0-2) % Neut # (Auto) (0902-9422) /uL Lymph # (Auto) (9886-0082) /uL [place] # (Auto) (0-900) /uL Eos # (Auto) (0-450) /uL Baso # (Auto) (0-100) /uL PT (10.1-12.7) SECONDS INR (0.9-1.3) APTT (26.4-36.2) SECONDS Sodium (137-145) mmol/L Potassium (3.4-5.1) mmol/L Chloride (98-107) mmol/L Carbon Dioxide (22-32) mmol/L BUN (7-17) mg/dL Creatinine (0.52-1.04) mg/dL Estimated GFR (>60) mL/min BUN/Creatinine Ratio (6-22) Glucose (70-100) mg/dL Calcium (8.4-10.2) mg/dL Total Bilirubin (0.2-1.3) mg/dL AST (14-36) IU/L ALT (<35) IU/L Alkaline Phosphatase (38-126) U/L Total Protein (6.3-8.2) g/dL Albumin (3.5-5.0) g/dL Globulin (1.7-4.1) g/dL Albumin/Globulin Ratio (1.0-2.8) Lipase (23-300) U/L Urine RBC None seen (0-5/HPF) Urine WBC 10-30/hpf H (0-5/HPF) Ur Squamous Epith Cells 5-10 /hpf H (0-5/HPF) Amorphous Sediment 2+ Urine Bacteria Moderate (10-30) H (None) Urine Mucus 1+ H (Negative) Ur Culture Indicated? Specimen cultured Point of care testing: Point of Care Testing Test Results Negative Urine Dip Bedside Urine Glucose Negative Bedside Urine Bilirubin - Negative Bedside Urine Ketone ++ 40 Urine Specific [place] 1.015 Bedside Urine Occult Blood - Negative Bedside Urine pH 7.0 Bedside Urine Protein +/- 15 Bedside Urine Urobilinogen - Negative Bedside Urine Nitrite - Negative Bedside Urine Leukocytes +/- [address] scan - abdomen/pelvis: Radiologist's Impression: [address] [address] [address] Scan Report Signed Patient: Josh Cunningham#: [id number] : 1985Acct:[id number] Age/Sex: 35 / FDate of Service: 05/20/20 Loc: ED Accession Number: [id number] Procedure: CT abdomen pelvis w con Ordering Provider: Janie Arriaga PROCEDURE: CT ABDOMEN PELVIS W CON INDICATIONS: History of Crohn's, R and LUQ abd pain TECHNIQUE: After the administration of intravenous contrast, 5 mm thick sections acquired from the diaphragm to the symphysis. 5 mm coronal and sagittal reformats were acquired. For radiation dose reduction, the following was used: automated exposure control, adjustment of mA and/or kV according to patient size. COMPARISON: None. FINDINGS: Image quality: Excellent. ABDOMEN: Lung bases: Lung bases are clear. Heart size is normal. Solid organs: Liver is normal in size and enhancement. Gallbladder is surg ically absent. Biliary system is non dilated. Pancreas enhances normally. Spleen is normal in size and enhancement. No adrenal nodules. Kidneys demonstrate normal size and enhancement, without hydronephrosis. Peritoneum and bowel: Stomach is significantly distended. Diffuse gastric wall thickening and edema is seen suggestive of gastritis likely related to patient's known history of Crohn's disease. No significant small bowel or colonic wall thickening. No mesenteric fat stranding. No free fluid or free air. Nodes and vessels: No retroperitoneal or mesenteric adenopathy by size criter ia. Aorta and inferior vena cava are normal in size. Miscellaneous: No ventral hernias. PELVIS: Genitourinary: Bladder wall thickness is normal. Miscellaneous: No inguinal hernias or adenopathy. Uterus and bilateral ovaries show no gross abnormality. Bones: No suspicious bony lesions. No vertebral body compression fractures. IMPRESSION: 1. Significant gastric wall thickening and edema suggestive of gastritis secondary to patient's known Crohn's disease. 2. No significant small bowel or colon wall thickening. No bowel obstruction. No free fluid or free air. Dictated by: Uriel Potter M.D. on 05/20/2020 at 18:50 Approved by: Uriel Potter M.D. on 05/20/2020 at 18:52 MDM Narrative Medical decision making narrative: 35-year-old female with a history of Crohn's presents emergency department for nausea, vomiting, diarrhea, and abdominal pain. States she was indicated due to reports of sudden onset of abdominal pain and tenderness on examination, CT reports findings of Crohn's and gastritis is most likely the cause of her diarrhea. Lipase is also elevated at 5562, AST and ALT slightly elevated as well indicating abdominal pain is most likely caused by pancreatitis. Unsure exact etiology of pancreatitis, patient denies drinking any alcohol ever due to exacerbation of Crohn's disease when she consumes alcohol. Patient does appear to be taking any medications that would cause pancreatitis. This may be related to viral etiology and or related to the exacerbation of Crohn's. Patient is hemodynamically stable, without signs of infection such as fever tachycardia. She was able to tolerate p.o. fluids and preferred trialing care of pancreatitis at home. I discussed with patient at length the return precautions and the importance of follow-up with her GI doctor. Patient agreed. She was given nausea and pain medication, instructed to stay on a clear liquid diet for the next 24-36 hours in the progressed slowly to the BRAT diet. I discussed benefits and risks to prednisone for Crohn's exacerbation, discussed side effects and benefits related to cans, insomnia, increased anxiety, and gastric irritation. Patient was encouraged to try half a dose initially to see how the durg will affect her due to ongoing bipolar disease. She was also encouraged to follow up with her GI for this issue as well. Patient was given very strict return precautions for new or worsening symptoms such as severe pain, uncontrollable vomiting, blood in stools, fevers, or any other concerns. Agreeable to plan of care. Has been at bedside also agrees plan of care. <Baljit Yost, DO - Last Filed: 05/21/20 04:04> Lab Data Labs: Lab Results 05/20/20 05/20/20 05/20/20 Range/Units 17:09 17:09 17:09 WBC 9.4 (4.5-11.0) X10^3/uL RBC 4.56 (4.0-5.2) X10^6/uL Hgb 14.5 (12.0-16.0) g/dL Hct 41.4 (36-46) % MCV 90.9 (80-100) fL MCH 31.8 (26-34) PG MCHC 35.0 (30-36) % RDW 13.6 (11.6-14.8) % Plt Count 254 (150-400) X10^3/uL Neut % (Auto) 67.0 (50-75) % Lymph % (Auto) 25.5 (25-40) % [place] % (Auto) 3.7 (3-14) % Eos % (Auto) 3.5 (2-4) % Baso % (Auto) 0.3 (0-2) % Neut # (Auto) 6300 (9958-5309) /uL Lymph # (Auto) 2400 (2660-7336) /uL [place] # (Auto) 300 (0-900) /uL Eos # (Auto) 300 (0-450) /uL Baso # (Auto) 0 (0-100) /uL PT 11.6 (10.1-12.7) SECONDS INR 1.0 (0.9-1.3) APTT 28 (26.4-36.2) SECONDS Sodium 137 (137-145) mmol/L Potassium 3.5 (3.4-5.1) mmol/L Chloride 103 (98-107) mmol/L Carbon Dioxide 26 (22-32) mmol/L BUN 19 H (7-17) mg/dL Creatinine 0.82 (0.52-1.04) mg/dL Estimated GFR > 60.0 (>60) mL/min BUN/Creatinine Ratio 23.2 H (6-22) Glucose 132 H (70-100) mg/dL Calcium 9.7 (8.4-10.2) mg/dL Total Bilirubin 0.8 (0.2-1.3) mg/dL AST 233 H (14-36) IU/L ALT 92 H (<35) IU/L Alkaline Phosphatase 82 (38-126) U/L Total Protein 7.0 (6.3-8.2) g/dL Albumin 4.4 (3.5-5.0) g/dL Globulin 2.6 (1.7-4.1) g/dL Albumin/Globulin Ratio 1.7 (1.0-2.8) Lipase 5562 H (23-300) U/L Urine RBC (0-5/HPF) Urine WBC (0-5/HPF) Ur Squamous Epith Cells (0-5/HPF) Amorphous Sediment Urine Bacteria (None) Urine Mucus (Negative) Ur Culture Indicated? 05/20/20 Range/Units 17:09 WBC (4.5-11.0) X10^3/uL RBC (4.0-5.2) X10^6/uL Hgb (12.0-16.0) g/dL Hct (36-46) % MCV (80-100) fL MCH (26-34) PG MCHC (30-36) % RDW (11.6-14.8) % Plt Count (150-400) X10^3/uL Neut % (Auto) (50-75) % Lymph % (Auto) (25-40) % [place] % (Auto) (3-14) % Eos % (Auto) (2-4) % Baso % (Auto) (0-2) % Neut # (Auto) (0350-6287) /uL Lymph # (Auto) (6073-0658) /uL [place] # (Auto) (0-900) /uL Eos # (Auto) (0-450) /uL Baso # (Auto) (0-100) /uL PT (10.1-12.7) SECONDS INR (0.9-1.3) APTT (26.4-36.2) SECONDS Sodium (137-145) mmol/L Potassium (3.4-5.1) mmol/L Chloride (98-107) mmol/L Carbon Dioxide (22-32) mmol/L BUN (7-17) mg/dL Creatinine (0.52-1.04) mg/dL Estimated GFR (>60) mL/min BUN/Creatinine Ratio (6-22) Glucose (70-100) mg/dL Calcium (8.4-10.2) mg/dL Total Bilirubin (0.2-1.3) mg/dL AST (14-36) IU/L ALT (<35) IU/L Alkaline Phosphatase (38-126) U/L Total Protein (6.3-8.2) g/dL Albumin (3.5-5.0) g/dL Globulin (1.7-4.1) g/dL Albumin/Globulin Ratio (1.0-2.8) Lipase (23-300) U/L Urine RBC None seen (0-5/HPF) Urine WBC 10-30/hpf H (0-5/HPF) Ur Squamous Epith Cells 5-10 /hpf H (0-5/HPF) Amorphous Sediment 2+ Urine Bacteria Moderate (10-30) H (None) Urine Mucus 1+ H (Negative) Ur Culture Indicated? Specimen cultured Point of care testing: Point of Care Testing Test Results Negative Urine Dip Bedside Urine Glucose Negative Bedside Urine Bilirubin - Negative Bedside Urine Ketone ++ 40 Urine Specific [place] 1.015 Bedside Urine Occult Blood - Negative Bedside Urine pH 7.0 Bedside Urine Protein +/- 15 Bedside Urine Urobilinogen - Negative Bedside Urine Nitrite - Negative Bedside Urine Leukocytes +/- 15 Esterase Discharge Plan Departure Patient Disposition: Home Clinical Impression: Acute pancreatitis Qualifiers: Pancreatitis type: other Acute pancreatitis complication: unspecified Qualified Code(s): K85.80 - Other acute pancreatitis without necrosis or infection Exacerbation of Crohn's disease Qualifiers: Digestive disease complication type: unspecified complication Qualified Code(s): K50.919 - Crohn's disease, unspecified, with unspecified complications Discharge Date/Time: 05/20/20 20:32 Instructions: DI for Crohn's Disease, DI for Pancreatitis, DI for Abdominal Pain-Adult Activity Restrictions/Additional Instructions: Thank you for entrusting me with your care today. As discussed, your CT shows an exacerbation of your chronic disease in your laboratory work indicates you have pancreatitis. Your lipase level is 5562. I recommend you stay on a clear liquid diet for the next 24-36 hours. Clear liquid means anything you can see 3 such as water, juice, and Jell-O. After that if you are continuing to feel better you may progress to a low residue, low-fat, soft diet such as the BRAT diet (bananas, rice, apples, toast). If you need to take food with your medication, I recommend something bland like a saltine cracker. You have been prescribed a nausea medication, please take this as needed. I have also prescribed you low-dose prednisone, this will help decrease your Crohn's symptoms and exacerbation. As we discussed, this may increased anxiety, insomnia, and cause stomach irritation. Pred[facility] [place]. You have been prescribed a narcotic medication, this medication can make you drowsy. Do not drive while using this medication or perform activities that require mental alertness. These medications can also make you constipated, please use [id number] docusate sodium as needed for constipation. Please return to the emergency department for any new or worsening symptoms such as uncontrollable vomiting, inability to keep foods or fluids down, severe pain, high fevers, dizziness, or any other concerns. Prescriptions: New prednisone 20 mg tablet 20 mg PO DAILY 7 Days Qty: 7 RF: 0 ondansetron 4 mg tablet,disintegrating 4 mg PO Q6H PRN (Reason: nausea and vomiting) Qty: 14 RF: 0 hydrocodone-acetaminophen [[place]] 5-325 mg tablet 1 tab PO Q4-6H PRN (Reason: pain) Qty: 14 RF: 0 No Action digestive enzymes capsule 1 cap PO TID RF: 0 Mag Glycinate 100 mg tablet 200 mg PO TID RF: 0 ziprasidone HCl 60 mg capsule 60 mg PO .QOD Qty: 45 RF: 1 propranolol 20 mg tablet 20 mg PO BID PRNRF: 0 lithium carbonate 300 mg capsule 600 mg PO BEDTIME Qty: 180 RF: 1 l-theanine 200 mg PO TID RF: 0 promethazine 25 mg tablet 25 mg PO Q6HP PRN (Reason: nausea and vomiting) Qty: 60 RF: 12 lamotrigine 100 mg tablet 150 mg PO DAILY Qty: 45 RF: 1 pregabalin 100 mg capsule See Rx Instructions .ROUTE .COMPLEX Qty: 180 RF: 1 ziprasidone HCl 40 mg capsule 40 mg PO .QOD Qty: 90 RF: 0 quetiapine 50 mg tablet See Rx Instructions PO DAILY 30 Days Qty: 90 RF: 1 Referrals: Mayte Martinez MD [Primary Care Provider] - <Baljit Yost DO - Last Filed: 05/21/20 04:04> [facility] ED Attending Sumeet Attestation: I was immediately available in the department for consultation. This documentation has been reviewed and I agree with assessment and plan. Supervised by Baljit Yost DO
[2020-05-20 17:41] LABS: Alanine Aminotransferase 92 IU/L (<35); Albumin 4.4 g/dL (3.5-5.0); Albumin Globulin Ratio 1.7 (1.0-2.8); Alkaline Phosphatase 82 U/L (38-126); Aspartate Aminotransferase 233 IU/L (14-36); BUN Creatinine Ratio 23.2 (6-22); Bilirubin Total 0.8 mg/dL (0.2-1.3); Blood Urea Nitrogen 19 mg/dL (7-17); Calcium 9.7 mg/dL (8.4-10.2); Carbon Dioxide 26 mmol/L (22-32); Chloride 103 mmol/L (98-107); Estimated Glomerular Filt Rate > 60.0 mL/min (>60); Globulin 2.6 g/dL (1.7-4.1); Glucose 132 mg/dL (70-100); HEMOLYSIS < 15 (0-50); Potassium 3.5 mmol/L (3.4-5.1); Sodium 137 mmol/L (137-145)
[2020-05-20] MEDS: KETOROLAC 60 MG/2 ML VIAL 30 MG IV (17:50)
[2020-05-20 18:04] LABS: Lipase 5562 U/L (23-300)
[2020-05-20 18:18] VITALS: BP 133/60; PULSE 85; RESP 15; O2SAT 95
[2020-05-20 18:26] LABS: RBC Urine None Seen (0-5/HPF)
[2020-05-20 18:37] LABS: Amorphous Sediment Urine 2+; Bacteria Urine Moderate (10-30); Culture Indicated Urine Specimen Cultured; Mucus Urine 1+ (Negative); Squamous Epithelial Cell Urine 5-10 /HPF (0-5/HPF); WBC Urine 10-30/HPF (0-5/HPF)
[2020-05-20] MEDS: SODIUM CHLORIDE 0.9% 1,000 ML 150 ML IV (18:46)
[2020-05-20 19:30] VITALS: BP 109/55; PULSE 85; RESP 16; O2SAT 100
[2020-05-20 20:00] VITALS: BP 101/57; PULSE 91; RESP 21; O2SAT 99
[2020-05-20] MEDS: HYDROCODONE/ACET 5/325 PREPACK 1 BOTTLE MISC (20:28)
[2020-05-20] MEDS: ONDANSETRON 4 MG ODT PREPACK 1 BOTTLE MISC (20:28)
[2020-05-20 20:32] VITALS: BP 101/57; PULSE 85; RESP 14; TEMP 37; O2SAT 100
== END 2020-05-20 20:32 | disposition home or self-care (01) ==
PROVIDERS: Emergency Provider Nurse Practitioner; PCP Family Medicine
DX: K85.80 Other acute pancreatitis without necrosis or infection (principal); K50.919 Crohn's disease, unspecified, with unspecified complications
CPT/HCPCS: 36415; 74177; 80053; 81003; 81015; 81025; 83690; 85025; 85610; 85730; 87086; 93005; 96361; 96374; 96375; 99284; J1885; J2405; Q9967

== ENCOUNTER → 2020-06-26 09:51 | Outpatient (CLI) | payer OTHER, SELFPAY ==
[2020-06-26 11:29] LABS: Alanine Aminotransferase 19 IU/L (<35); Albumin 4.5 g/dL (3.5-5.0); Alkaline Phosphatase 51 U/L (38-126); Aspartate Aminotransferase 22 IU/L (14-36); Bilirubin Total 0.3 mg/dL (0.2-1.3); Blood Urea Nitrogen 13 mg/dL (7-17); Calcium 9.9 mg/dL (8.4-10.2); Carbon Dioxide 31 mmol/L (22-32); Chloride 101 mmol/L (98-107); Estimated Glomerular Filt Rate > 60.0 mL/min (>60); Globulin 2.3 g/dL (1.7-4.1); Glucose 99 mg/dL (70-100); HEMOLYSIS < 15 (0-50); Potassium 4.3 mmol/L (3.4-5.1); Sodium 137 mmol/L (137-145); Total Protein 6.8 g/dL (6.3-8.2)
== END ==
PROVIDERS: PCP Family Medicine; Referring Provider Family Medicine; Visit Provider Family Medicine
DX: K50.919 Crohn's disease, unspecified, with unspecified complications (principal); K85.80 Other acute pancreatitis without necrosis or infection
CPT/HCPCS: 36415; 80053

== ENCOUNTER → 2020-07-10 09:48 | Outpatient (CLI) | payer OTHER, SELFPAY ==
[2020-07-10 10:37] LABS: Add Manual Diff / Slide Review NO; Basophils Absolute Auto 100 /uL (0-100); Basophils Percent Auto 0.7 % (0-2); Eosinophils Absolute Auto 200 /uL (0-450); Eosinophils Percent Auto 2.7 % (2-4); Hematocrit 40.9 % (36-46); Hemoglobin 13.9 g/dL (12.0-16.0); Lymphocytes Absolute Auto 2400 /uL (1100-4500); Lymphocytes Percent Auto 29.4 % (25-40); Mean Corpuscular HGB Conc 34.1 % (30-36); Mean Corpuscular Hemoglobin 31.2 PG (26-34); Mean Corpuscular Volume 91.7 fL (80-100); Monocytes Absolute Auto 400 /uL (0-900); Monocytes Percent Auto 5.5 % (3-14); Neutrophils Absolute Auto 5000 /uL (1500-7000); Neutrophils Percent Auto 61.7 % (50-75); Platelet Count 273 X10^3/uL (150-400); Red Blood Cell Count 4.46 X10^6/uL (4.0-5.2); Red Cell Distribution Width 13.1 % (11.6-14.8); White Blood Cell Count 8.1 X10^3/uL (4.5-11.0)
[2020-07-10 11:04] LABS: Alanine Aminotransferase 18 IU/L (<35); Albumin 4.2 g/dL (3.5-5.0); Alkaline Phosphatase 48 U/L (38-126); Amylase 69 U/L (30-110); Aspartate Aminotransferase 23 IU/L (14-36); BUN Creatinine Ratio 13.2 (6-22); Bilirubin Total 0.8 mg/dL (0.2-1.3); Blood Urea Nitrogen 10 mg/dL (7-17); Calcium 9.4 mg/dL (8.4-10.2); Carbon Dioxide 26 mmol/L (22-32); Chloride 105 mmol/L (98-107); Estimated Glomerular Filt Rate > 60.0 mL/min (>60); Globulin 2.1 g/dL (1.7-4.1); Glucose 86 mg/dL (70-100); HEMOLYSIS < 15 (0-50); Lipase 114 U/L (23-300); Potassium 3.6 mmol/L (3.4-5.1); Sodium 136 mmol/L (137-145); Total Protein 6.3 g/dL (6.3-8.2)
[2020-07-12 15:37] LABS: Lactoferrin, Fecal Quant <1.00 ug/mL(g) (0.00-7.24)
== END ==
PROVIDERS: PCP Family Medicine; Referring Provider Physician Assistant; Visit Provider Physician Assistant
DX: K50.019 Crohn's disease of small intestine with unspecified complications (principal); R74.8 Abnormal levels of other serum enzymes; R10.11 Right upper quadrant pain; R10.12 Left upper quadrant pain; R10.13 Epigastric pain; K31.89 Other diseases of stomach and duodenum; R19.7 Diarrhea, unspecified
CPT/HCPCS: 36415; 80053; 82150; 83631; 83690; 85025

== ENCOUNTER 2020-10-28 19:05 | Emergency (ER) | payer OTHER, SELFPAY ==
[2020-10-28 19:18] VITALS: BP 129/65; PULSE 112; RESP 95; TEMP 36.1; O2SAT 97; BMI 26.6
--- NOTE | 2020-10-28 19:22 | ED.PSYCH ---
HPI - Psych General Chief Complaint: Psychiatric Symptoms Stated Complaint: Bipoloar, Hallucinations and Manic Symptoms Time Seen by Provider: 10/28/20 19:08 Source: patient and family Mode of arrival: Ambulatory Limitations: no limitations History of Present Illness HPI Narrative: 35F former smoker with Bipolar 2, ADHD, and PTSD presents with significant other and complaints of hallucinations. She has been very good about taking all of her prescribed meds and last week had an increase in her lithium due to increasing depression. She has a long history of suicidal thoughts, but never has acted on them. She had a thought of jumping in front of a moving car last week. Over the course of the week she has had increasing difficulty with sleep and today is feeling manic. She has rapid speech, wants to go find drugs and have sex all day. She had a visual hallucination which she saw a bunch of bright, flashing dear and said it was quite enjoyable. She has remarkable insight, recognizes that she is ?ramping up ?and wants to be checked out before becomes a bigger problem. She has no suicidal or homicidal ideation. She is able to care for herself, she has good social support. She denies drugs or alcohol use. She presents with her significant other. Denies any excessive fatigue, chest pain, shortness of breath, abdominal pain, trouble with bowel movements or urination. MD complaint: feels depressed, altered mental status and other Onset (ago): hour(s) Duration: constant History of same: Yes Relieving factors: none Exacerbating factors: none Associated psychiatric symptoms: depression, suicidal ideation, racing thoughts and visual hallucinations Treatments prior to arrival: none If self harm: admits thoughts of self harm Related Data Home Medications Medication Instructions Recorded Confirmed l-theanine 200 mg PO TID 04/18/20 10/19/20 magnesium glycinate 100 mg tablet 200 mg PO TID tab 04/18/20 10/19/20 Previous Rx's Medication Instructions Recorded promethazine 25 mg tablet 25 mg PO Q6HP PRN #60 tab 03/30/19 lamotrigine 100 mg tablet 150 mg PO DAILY #135 tab 06/15/20 ondansetron 4 mg disintegrating 4 mg PO Q6H PRN #30 tab 08/31/20 tablet quetiapine 50 mg tablet See Rx Instructions PO DAILY 30 09/07/20 Days #90 tab ziprasidone HCl 40 mg capsule 40 mg PO QPM #90 cap 09/07/20 pregabalin 100 mg capsule See Rx Instructions .ROUTE 09/08/20 .COMPLEX #180 capsule lithium carbonate 300 mg capsule 600 mg PO BEDTIME #180 cap 10/09/20 dextroamphetamine-amphetamine ER 20 mg PO QAM #30 cap 10/19/20 20 mg 24hr capsule,extend release Allergies Allergy/AdvReac Type Severity Reaction Status Date / Time duloxetine [DULOXETINE] Allergy Mild MANIC Verified 10/19/20 10:50 Sulfa (Sulfonamide Allergy Mild HIVES Verified 10/19/20 10:50 Antibiotics) [SULFA (SULFONAMIDE ANTIBIOTICS)] methylprednisolone Allergy Unknown Verified 10/19/20 10:50 [From MEDROL] venlafaxine AdvReac Verified 10/19/20 10:50 Review of Systems Constitutional Constitutional: Denies chills, Denies fatigue, Denies fever(s), Denies frequent falls, Denies lethargy and Denies weakness Eyes Eyes: Denies change in vision, Denies eye discharge, Denies irritation and Denies loss of vision ENT Ears, Nose, Mouth, and Throat: Denies change in voice, Denies dizziness, Denies neck pain, Denies sore throat and Denies throat swelling Cardiovascular Cardiovascular: Denies chest pain, Denies irregular heart rhythm, Denies lightheadedness, Denies palpitations, Denies dyspnea, Denies dyspnea on exertion and Denies orthopnea Respiratory Respiratory: Denies cough, Denies dyspnea, Denies dyspnea on exertion and Denies wheezing Gastrointestinal Gastrointestinal: Denies abdominal pain, Denies change in bowel habits, Denies diarrhea, Denies nausea and Denies vomiting Genitourinary Genitourinary: Reports change in libido Genitourinary: Reports change in libido Musculoskeletal Musculoskeletal: Denies neck pain and Denies numbness Integumentary/Breasts Skin/Breast: Denies pruritus, Denies erythema, Denies rash and Denies wounds Neurologic Neurologic: Reports behavioral changes, Denies confusion, Denies dizziness, Denies frequent falls, Denies loss of vision, Denies numbness and Denies weakness Psychiatric Psychiatric: Denies anxiety, Reports behavioral changes, Reports change in libido, Denies confusion, Reports depression, Reports mood swings, Reports visual hallucinations, Denies homicidal ideation and Reports suicidal ideation Endocrine Endocrine: Reports change in libido, Denies fatigue, Denies flushing and Denies palpitations Hematologic/Lymphatic Hematologic/Lymphatic: Denies easy bruising Allergic/Immunologic Allergic/Immunologic: Denies urticaria, Denies throat swelling and Denies wheezing Patient History Medical History Abnormal Pap smear of cervix (2005) Acne (1995) ADHD (attention deficit hyperactivity disorder) (1993) Anorexia nervosa (1998) Anxiety (1998) Bipolar disorder (2005) Chicken pox (1988) Chronic back pain (1994) Chronic headaches (1999) Crohn disease Depression (2005) Foot pain (2003) Fractures (2003) Gastritis (2014) Migraines (1999) Ovarian cyst (2014) Pelvis tilted (2007) Personality disorder (2005) PTSD (post-traumatic stress disorder) (2005) Shoulder pain (2005) Surgical History Anesthesia History of bilateral inguinal hernia repair (1988) History of third molar tooth extraction (1999) Status post laparoscopic cholecystectomy (2009) Family History Father Age: 64 Cancer Diabetes mellitus Hypertension High cholesterol Mental health problem Prostate cancer Grandfather Cancer Hypertension Colon cancer Grandmother Cancer Diabetes mellitus Heart disease Hypertension High cholesterol Mental health problem Stroke Breast cancer Dementia Grandmother Diabetes mellitus Heart disease Hypertension Mental health problem Sister Age: 40 Hypertension Mother No problems noted. Grandfather No problems noted. Social History marital status: number of children: 1 household members: family lives independently: Yes caregiver/support person: No housing: house Smoking Status: Former smoker second hand exposure: No alcohol intake: current substance use type: does not use Smoking Status: Former smoker alcohol intake frequency: 0-2 drinks per day Substance Use Type: marijuana Exam Narrative Exam Narrative: GENERAL: [35] year old patient appears stated age. Well-nourished, well-developed patient, in mild distress. HEAD: Atraumatic. Normocephalic. EYES: Pupils equal round and reactive. Extraocular motions intact. No scleral icterus. No injection or drainage. ENT: Nose without bleeding, purulent drainage. Throat without erythema, tonsillar hypertrophy or exudate. Airway patent. NECK: Trachea midline. Non tender CARDIOVASCULAR: Regular rate and rhythm without murmurs, gallops, or rubs. RESPIRATORY: Clear to auscultation. Breath sounds equal bilaterally. No wheezes, rales, or rhonchi. GASTROINTESTINAL: Abdomen soft, non-tender, nondistended. EXTREMITIES: No edema or joint tenderness. BACK: Nontender without deformity or crepitance. No flank tenderness. NEURO: AOx3. SKIN: No rash or erythema of visible areas Initial Vital Signs Initial Vital Signs: Vital Signs Temperature 97 F L 10/28/20 19:18 Pulse Rate 112 H 10/28/20 19:18 Respiratory Rate 95 H 10/28/20 19:18 Blood Pressure 129/65 10/28/20 19:18 Pulse Oximetry 97 10/28/20 19:18 Course Orders Ordered: ED Orders 10/28/20 14:28 Urine Drug Screen, Rapid Stat 10/28/20 19:45 Complete Blood Count AUTO DIFF Stat Comprehensive Metabolic Panel Stat Ethanol (ETOH) Stat [place] Stat Thyroid Stimulating Hormone Stat Vital Signs Vital signs: Vital Signs - 8 hr 10/28/20 19:18 10/28/20 22:44 Temperature 97 F L Pulse Rate 112 H 83 Respiratory Rate 95 H 16 Blood Pressure 129/65 113/75 Pulse Oximetry 97 98 MDM - Psych Lab Data Result diagrams: 10/28/20 19:45 10/28/20 19:45 Labs: Lab Results 10/28/20 10/28/20 10/28/20 Range/Units 14:28 19:45 19:45 WBC 10.6 (4.5-11.0) X10^3/uL RBC 4.36 (4.0-5.2) X10^6/uL Hgb 13.2 (12.0-16.0) g/dL Hct 39.5 (36-46) % MCV 90.7 (80-100) fL MCH 30.3 (26-34) PG MCHC 33.4 (30-36) % RDW 13.1 (11.6-14.8) % Plt Count 296 (150-400) X10^3/uL Neut % (Auto) 69.9 (50-75) % Lymph % (Auto) 20.8 L (25-40) % [place] % (Auto) 4.7 (3-14) % Eos % (Auto) 3.9 (2-4) % Baso % (Auto) 0.7 (0-2) % Neut # (Auto) 7400 H (2469-7632) /uL Lymph # (Auto) 2200 (9989-6544) /uL [place] # (Auto) 500 (0-900) /uL Eos # (Auto) 400 (0-450) /uL Baso # (Auto) 100 (0-100) /uL Sodium 137 (137-145) mmol/L Potassium 3.7 (3.4-5.1) mmol/L Chloride 104 (98-107) mmol/L Carbon Dioxide 30 (22-32) mmol/L BUN 7 (7-17) mg/dL Creatinine 0.66 (0.52-1.04) mg/dL Estimated GFR > 60.0 (>60) mL/min BUN/Creatinine Ratio 10.6 (6-22) Glucose 122 H (70-100) mg/dL Calcium 9.7 (8.4-10.2) mg/dL Total Bilirubin 0.2 (0.2-1.3) mg/dL AST 21 (14-36) IU/L ALT 14 (<35) IU/L Alkaline Phosphatase 54 (38-126) U/L Total Protein 6.8 (6.3-8.2) g/dL Albumin 4.3 (3.5-5.0) g/dL Globulin 2.5 (1.7-4.1) g/dL Albumin/Globulin Ratio 1.7 (1.0-2.8) TSH (0.47-4.68) uIU/mL U Opiates 300ng/mL cut Negative (Negative) Ur Oxycodone Screen Negative (Negative) Urine Methadone Screen Negative (Negative) Ur Barbiturates Screen Negative (Negative) U Tricyclic Antidepress Positive H (Negative) Ur Phencyclidine Scrn Negative (Negative) Ur Amphetamines Screen Positive H (Negative) U Methamphetamines Scrn Negative (Negative) Ur MDMA Scrn (Ecstasy) Negative (Negative) U Benzodiazepines Scrn Negative (Negative) [place] (0.6-1.2) mmol/L Urine Cocaine Screen Negative (Negative) U Marijuana (THC) Screen Negative (Negative) Ethyl Alcohol < 10 ( - 10) mg/dL 11/28/20 Range/Units 19:45 WBC (4.5-11.0) X10^3/uL RBC (4.0-5.2) X10^6/uL Hgb (12.0-16.0) g/dL Hct (36-46) % MCV (80-100) fL MCH (26-34) PG MCHC (30-36) % RDW (11.6-14.8) % Plt Count (150-400) X10^3/uL Neut % (Auto) (50-75) % Lymph % (Auto) (25-40) % [place] % (Auto) (3-14) % Eos % (Auto) (2-4) % Baso % (Auto) (0-2) % Neut # (Auto) (8154-0699) /uL Lymph # (Auto) (3617-2378) /uL [place] # (Auto) (0-900) /uL Eos # (Auto) (0-450) /uL Baso # (Auto) (0-100) /uL Sodium (137-145) mmol/L Potassium (3.4-5.1) mmol/L Chloride (98-107) mmol/L Carbon Dioxide (22-32) mmol/L BUN (7-17) mg/dL Creatinine (0.52-1.04) mg/dL Estimated GFR (>60) mL/min BUN/Creatinine Ratio (6-22) Glucose (70-100) mg/dL Calcium (8.4-10.2) mg/dL Total Bilirubin (0.2-1.3) mg/dL AST (14-36) IU/L ALT (<35) IU/L Alkaline Phosphatase (38-126) U/L Total Protein (6.3-8.2) g/dL Albumin (3.5-5.0) g/dL Globulin (1.7-4.1) g/dL Albumin/Globulin Ratio (1.0-2.8) TSH 2.74 (0.47-4.68) uIU/mL U Opiates 300ng/mL cut (Negative) Ur Oxycodone Screen (Negative) Urine Methadone Screen (Negative) Ur Barbiturates Screen (Negative) U Tricyclic Antidepress (Negative) Ur Phencyclidine Scrn (Negative) Ur Amphetamines Screen (Negative) U Methamphetamines Scrn (Negative) Ur MDMA Scrn (Ecstasy) (Negative) U Benzodiazepines Scrn (Negative) [place] 1.4 H (0.6-1.2) mmol/L Urine Cocaine Screen (Negative) U Marijuana (THC) Screen (Negative) Ethyl Alcohol ( - 10) mg/dL Urine Dip Bedside Urine Glucose Negative Bedside Urine Bilirubin - Negative Bedside Urine Ketone - Negative Urine Specific [place] 1.030 Bedside Urine Occult Blood - Negative Bedside Urine pH 6.0 Bedside Urine Protein +/- 15 Bedside Urine Urobilinogen - Negative Bedside Urine Nitrite - Negative Bedside Urine Leukocytes - Negative Esterase MDM Narrative Medical decision making narrative: Patient with previous episodes of suicidal ideation and depression is now managed. She has remarkable insight, is able to contract for safety and has good social support. She is confident she will be able to see her mental health professional early in the week and would highly prefer to try to improve with increased focus on sleep, routine medications and other as opposed to pursuing hospitalization. We have established a follow-up call with the [place] 0 8 tomorrow afternoon to check in. She understands return precautions and has had questions answered to her apparent satisfaction. Discharge Plan Departure Patient Disposition: Home Clinical Impression: Bipolar disorder Qualifiers: Active/Remission status: currently active Current bipolar episode type: manic Current episode severity: moderate Qualified Code(s): F31.12 - Bipolar disorder, current episode manic without psychotic features, moderate Instructions: DI for Bipolar Disorder Activity Restrictions/Additional Instructions: *You have been diagnosed with [ Bipolar with active marilyn. Elevated [place] ] *What to do: *Take medications as directed: However, please return to previous dosing of [place] until you can follow up with Buffy *Please contact your mental health provider first thing on Friday. *Return to ER if you should have any new, worsening or concerning symptoms *you may reach out to the [facility] anonymous text line [phone] or call the number listed below. Prescriptions: No Action Mag Glycinate 100 mg tablet 200 mg PO TID RF: 0 lamotrigine 100 mg tablet 150 mg PO DAILY Qty: 135 RF: 1 quetiapine 50 mg tablet See Rx Instructions PO DAILY 30 Days Qty: 90 RF: 1 ziprasidone HCl 40 mg capsule 40 mg PO QPM Qty: 90 RF: 1 dextroamphetamine-amphetamine [Adderall XR] 20 mg capsule,extended release 24hr 20 mg PO QAM Qty: 30 RF: 0 l-theanine 200 mg PO TID RF: 0 promethazine 25 mg tablet 25 mg PO Q6HP PRN (Reason: nausea and vomiting) Qty: 60 RF: 12 ondansetron 4 mg tablet,disintegrating 4 mg PO Q6H PRN (Reason: nausea and vomiting) Qty: 30 RF: 1 pregabalin 100 mg capsule See Rx Instructions .ROUTE .COMPLEX Qty: 180 RF: 1 lithium carbonate 300 mg capsule 600 mg PO BEDTIME Qty: 180 RF: 1 [facility]errals: [facility] [Outside] Mayte Martinez MD [Primary Care Provider] -
[2020-10-28 19:53] LABS: Add Manual Diff / Slide Review NO; Basophils Absolute Auto 100 /uL (0-100); Basophils Percent Auto 0.7 % (0-2); Eosinophils Absolute Auto 400 /uL (0-450); Eosinophils Percent Auto 3.9 % (2-4); Hematocrit 39.5 % (36-46); Hemoglobin 13.2 g/dL (12.0-16.0); Lymphocytes Absolute Auto 2200 /uL (1100-4500); Lymphocytes Percent Auto 20.8 % (25-40); Mean Corpuscular HGB Conc 33.4 % (30-36); Mean Corpuscular Hemoglobin 30.3 PG (26-34); Mean Corpuscular Volume 90.7 fL (80-100); Monocytes Absolute Auto 500 /uL (0-900); Monocytes Percent Auto 4.7 % (3-14); Neutrophils Absolute Auto 7400 /uL (1500-7000); Neutrophils Percent Auto 69.9 % (50-75); Platelet Count 296 X10^3/uL (150-400); Red Blood Cell Count 4.36 X10^6/uL (4.0-5.2); Red Cell Distribution Width 13.1 % (11.6-14.8); White Blood Cell Count 10.6 X10^3/uL (4.5-11.0)
[2020-10-28 20:07] LABS: Alanine Aminotransferase 14 IU/L (<35); Albumin 4.3 g/dL (3.5-5.0); Albumin Globulin Ratio 1.7 (1.0-2.8); Alkaline Phosphatase 54 U/L (38-126); Aspartate Aminotransferase 21 IU/L (14-36); BUN Creatinine Ratio 10.6 (6-22); Bilirubin Total 0.2 mg/dL (0.2-1.3); Blood Urea Nitrogen 7 mg/dL (7-17); Calcium 9.7 mg/dL (8.4-10.2); Carbon Dioxide 30 mmol/L (22-32); Chloride 104 mmol/L (98-107); Estimated Glomerular Filt Rate > 60.0 mL/min (>60); Ethanol (ETOH) < 10 mg/dL; Globulin 2.5 g/dL (1.7-4.1); Glucose 122 mg/dL (70-100); HEMOLYSIS < 15 (0-50); Potassium 3.7 mmol/L (3.4-5.1); Sodium 137 mmol/L (137-145); Total Protein 6.8 g/dL (6.3-8.2)
[2020-10-28 20:12] LABS: Lithium 1.4 mmol/L (0.6-1.2)
[2020-10-28 20:46] LABS: Thyroid Stimulating Hormone 2.74 uIU/mL (0.47-4.68)
[2020-10-28 21:58] LABS: Ur Creatinine Normal (Normal); Ur Specific Gravity Normal (Normal); Urine pH Normal (Normal)
[2020-10-28 21:59] LABS: UR Morphine/Opiate cutoff 300 Negative (Negative); Urine Amphetamines Positive (Negative); Urine Barbiturates Negative (Negative); Urine Benzodiazepines Negative (Negative); Urine Cocaine Negative (Negative); Urine MDMA Negative (Negative); Urine Methadone Negative (Negative); Urine Methamphetamines Negative (Negative); Urine Phencyclidine Negative (Negative); Urine Tetrahydrocannabinol Negative (Negative); Urine Tricyclic Antidepressant Positive (Negative)
[2020-10-28 22:00] LABS: Urine Oxycodone Negative (Negative)
[2020-10-28 22:44] VITALS: BP 113/75; PULSE 83; RESP 16; O2SAT 98
== END 2020-10-28 22:44 | disposition home or self-care (01) ==
PROVIDERS: Emergency Provider Emergency Medicine; PCP Family Medicine
DX: F31.12 Bipolar disorder, current episode manic without psychotic features, moderate (principal)
CPT/HCPCS: 36415; 80053; 80178; 80305; 80320; 81003; 84443; 85025; 99283; 99284

== ENCOUNTER → 2020-11-14 11:01 | Outpatient (CLI) | payer OTHER, SELFPAY ==
--- NOTE | 2020-11-14 11:02 | DI.RAD.S_ITS ---
PROCEDURE: XR WRIST LT MIN 3V INDICATIONS: left wrist pain localized to snuff box TECHNIQUE: 4 views of the wrist were acquired. COMPARISON: None. FINDINGS: Bones: No fractures or dislocations. No suspicious bony lesions. Scaphoid view: No trauma found. Soft tissues: No suspicious soft tissue calcifications. IMPRESSION: No trauma found. Source of current pain is not identified. Depending on the clinical status follow-up by high-resolution MR scanning may become necessary if fine usual symptoms persist. Dictated by: Jayjay Patterson M.D. on 11/14/2020 at 11:48 Approved by: Jayjay Patterson M.D. on 11/14/2020 at 11:49
== END ==
PROVIDERS: PCP Family Medicine; Referring Provider Family Medicine; Visit Provider Family Medicine
DX: M25.532 Pain in left wrist (principal)
CPT/HCPCS: 73110

== ENCOUNTER → 2021-01-30 13:47 | Outpatient (CLI) | payer OTHER, SELFPAY ==
[2021-01-30 16:07] LABS: HCG Quantitative /Beta subunit < 2.4 mIU/mL
== END ==
PROVIDERS: PCP Family Medicine; Referring Provider Family Medicine; Visit Provider Family Medicine
DX: Z30.431 Encounter for routine checking of intrauterine contraceptive device (principal)
CPT/HCPCS: 36415; 84702

== ENCOUNTER → 2021-02-02 12:12 | Outpatient (CLI) | payer OTHER, SELFPAY ==
[2021-02-02 14:40] LABS: Vitamin B12 578 pg/mL (239-931)
[2021-02-04 00:06] LABS: Zinc 95 ug/dL (44-115)
[2021-02-07 14:26] LABS: Vitamin C 1.4 mg/dL (0.4-2.0)
[2021-02-08 18:38] LABS: 25 hydroxy Vitamin D 2 <1.0 ng/mL (.); 25 hydroxy Vitamin D3 42 ng/mL (.)
== END ==
PROVIDERS: PCP Family Medicine; Referring Provider Physician Assistant; Visit Provider Physician Assistant
DX: K14.0 Glossitis (principal)
CPT/HCPCS: 36415; 82180; 82306; 82607; 82746; 84630

== ENCOUNTER 2021-03-20 21:19 | Emergency (ER) | payer OTHER, SELFPAY ==
[2021-03-20 21:25] VITALS: BP 131/69; PULSE 90; RESP 14; TEMP 37.1; O2SAT 96; BMI 28.1
[2021-03-20] MEDS: PANTOPRAZOLE 40 MG VIAL IV (22:04)
[2021-03-20] MEDS: SODIUM CHLORIDE 0.9% 1,000 ML 1000 ML IV (22:06)
[2021-03-20 22:07] LABS: Add Manual Diff / Slide Review NO; Basophils Absolute Auto 200 /uL (0-100); Eosinophils Absolute Auto 100 /uL (0-450); Eosinophils Percent Auto 1.4 % (2-4); Hematocrit 41.2 % (36-46); Hemoglobin 13.8 g/dL (12.0-16.0); Lymphocytes Absolute Auto 1400 /uL (1100-4500); Lymphocytes Percent Auto 15.7 % (25-40); Mean Corpuscular HGB Conc 33.5 % (30-36); Mean Corpuscular Hemoglobin 30.3 PG (26-34); Mean Corpuscular Volume 90.5 fL (80-100); Monocytes Absolute Auto 400 /uL (0-900); Monocytes Percent Auto 4.3 % (3-14); Neutrophils Absolute Auto 6600 /uL (1500-7000); Neutrophils Percent Auto 76.6 % (50-75); Platelet Count 298 X10^3/uL (150-400); Red Blood Cell Count 4.55 X10^6/uL (4.0-5.2); Red Cell Distribution Width 13.3 % (11.6-14.8); White Blood Cell Count 8.6 X10^3/uL (4.5-11.0)
--- NOTE | 2021-03-20 22:08 | ED_ITS ---
HPI - General Adult General Chief complaint: Nausea/Vomiting/Diarrhea Stated complaint: PUKING Time Seen by Provider: 03/20/21 21:27 Source: patient Mode of arrival: Ambulatory Limitations: no limitations History of Present Illness HPI narrative: Patient is a 35-year-old female here for evaluation of nausea and vomiting. She states the symptoms started this afternoon after dinner. She recently had some changes in her psychiatric medication and most recently and an increase in her lithium dose. States the last time that this happened she also experienced nausea and vomiting. This change in medication dosage was approximately 5 days ago. She has chronic abdominal pain and states her abdominal pain is not worse from above her baseline. No diarrhea. No fevers. Related Data Home Medications Medication Instructions Recorded Confirmed l-theanine 200 mg PO TID 04/18/20 03/13/21 magnesium glycinate 100 mg tablet 200 mg PO TID tab 04/18/20 03/13/21 Previous Rx's Medication Instructions Recorded promethazine 25 mg tablet 25 mg PO Q6HP PRN #60 tab 03/30/19 ondansetron 4 mg disintegrating 4 mg PO Q6H PRN #30 tab 08/31/20 tablet metformin 500 mg tablet 250 mg PO .COMPLEX #60 tab 01/11/21 clonidine HCl 0.1 mg tablet 0.1 mg PO BEDTIME PRN #90 tab 03/08/21 dextroamphetamine-amphetamine ER 30 mg PO QAM #30 cap 03/08/21 30 mg 24hr capsule,extend release lamotrigine 100 mg tablet 200 mg PO DAILY #180 tab 03/08/21 lithium carbonate 300 mg capsule 600 mg PO BEDTIME #180 cap 03/08/21 omeprazole 20 mg capsule,delayed 20 mg PO BID #180 cap 03/08/21 release quetiapine 50 mg tablet See Rx Instructions PO DAILY 30 03/08/21 Days #90 tab pregabalin 100 mg capsule See Rx Instructions .ROUTE 03/16/21 .COMPLEX #180 capsule Allergies Allergy/AdvReac Type Severity Reaction Status Date / Time duloxetine [DULOXETINE] Allergy Mild MANIC Verified 03/20/21 21:29 Sulfa (Sulfonamide Allergy Mild HIVES Verified 03/20/21 21:29 Antibiotics) [SULFA (SULFONAMIDE ANTIBIOTICS)] methylprednisolone Allergy Unknown Verified 03/20/21 21:29 [From MEDROL] venlafaxine AdvReac Verified 03/20/21 21:29 Review of Systems Constitutional Constitutional: Reports fatigue and Denies fever(s) Eyes Eyes: Denies change in vision ENT Ears, Nose, Mouth, and Throat: Denies sore throat Cardiovascular Cardiovascular: Denies chest pain and Denies dyspnea Respiratory Respiratory: Denies cough and Denies dyspnea Gastrointestinal Gastrointestinal: Reports abdominal pain, Denies change in bowel habits, Reports nausea and Reports vomiting Genitourinary Genitourinary: Denies dysuria Genitourinary: Denies dysuria Musculoskeletal Musculoskeletal: Denies arthralgias and Denies myalgias Integumentary/Breasts Skin/Breast: Denies rash Neurologic Neurologic: Denies behavioral changes Psychiatric Psychiatric: Denies behavioral changes Endocrine Endocrine: Reports fatigue Hematologic/Lymphatic On Anticoagulants: No Allergic/Immunologic Allergic/Immunologic: Denies urticaria Patient History Medical History Abnormal Pap smear of cervix (2005) Acne (1995) ADHD (attention deficit hyperactivity disorder) (1993) Anorexia nervosa (1998) Anxiety (1998) Bipolar disorder (2005) Chicken pox (1988) Chronic back pain (1994) Chronic headaches (1999) Crohn disease Depression (2005) Foot pain (2003) Fractures (2003) Gastritis (2014) Migraines (1999) Ovarian cyst (2014) Pelvis tilted (2007) Personality disorder (2005) PTSD (post-traumatic stress disorder) (2005) Shoulder pain (2005) Surgical History Anesthesia History of bilateral inguinal hernia repair (1988) History of third molar tooth extraction (1999) Status post laparoscopic cholecystectomy (2009) Family History Father Age: 64 Cancer Diabetes mellitus Hypertension High cholesterol Mental health problem Prostate cancer Grandfather Cancer Hypertension Colon cancer Grandmother Cancer Diabetes mellitus Heart disease Hypertension High cholesterol Mental health problem Stroke Breast cancer Dementia Grandmother Diabetes mellitus Heart disease Hypertension Mental health problem Sister Age: 40 Hypertension Mother No problems noted. Grandfather No problems noted. Social History marital status: number of children: 1 household members: family lives independently: Yes caregiver/support person: No housing: house Smoking Status: Former smoker second hand exposure: No alcohol intake: current substance use type: does not use Smoking Status: Former smoker alcohol intake frequency: holidays/special occasions only Substance Use Type: marijuana Exam Initial Vital Signs Initial Vital Signs: Vital Signs Temperature 98.7 F 03/20/21 21:25 Pulse Rate 90 03/20/21 21:25 Respiratory Rate 14 03/20/21 21:25 Blood Pressure 131/69 03/20/21 21:25 Pulse Oximetry 96 03/20/21 21:25 Const General: cooperative and comfortable Limitations: mental status not altered HENMT Head: normal to inspection and normocephalic Resp Effort & Inspection: normal respiratory effort Cardio Rate: regular rate GI Inspection: non-distended Skin Lesions: no lesions Rashes: no rashes Neuro General: patient alert, patient awake and patient oriented x3 Cognition: normal cognition Speech: speech normal Extrem General: normal to inspection and capillary refill normal Psych Appearance: grossly normal and well kempt Course Orders Ordered: ED Orders 03/20/21 21:45 Complete Blood Count AUTO DIFF Stat Comprehensive Metabolic Panel Stat Lipase Stat [place] Stat Test Serum,Qual Stat Discontinued Medications Sodium Chloride (Normal Saline 0.9%) 1,000 mls @ 1,000 mls/hr IV BOLUS ONE Stop: 03/20/21 22:26 Last Infusion: 03/20/21 23:15 Dose: 0 mls/hr Documented by: Admin: 03/20/21 22:06 Dose: 1,000 mls/hr Documented by: DERRICK Pantoprazole Sodium (Pantoprazole 40 Mg Vial) 40 mg IV NOW ONE Stop: 03/20/21 21:28 Last Admin: 03/20/21 22:04 Dose: 40 mg Documented by: DERRICK Vital Signs Vital signs: Vital Signs - 8 hr 03/20/21 21:25 03/20/21 23:23 Temperature 98.7 F Pulse Rate 90 82 Respiratory Rate 14 16 Blood Pressure 131/69 131/64 Pulse Oximetry 96 98 Medical Decision Making Medical Records Medical records reviewed: Yes I reviewed the patient's medical records. Lab Data Lab results reviewed: Yes I reviewed the patient's lab results. Result diagrams: 03/20/21 21:45 03/20/21 21:45 Labs: Lab Results 03/20/21 03/20/21 03/20/21 Range/Units 21:45 21:45 21:45 WBC 8.6 (4.5-11.0) X10^3/uL RBC 4.55 (4.0-5.2) X10^6/uL Hgb 13.8 (12.0-16.0) g/dL Hct 41.2 (36-46) % MCV 90.5 (80-100) fL MCH 30.3 (26-34) PG MCHC 33.5 (30-36) % RDW 13.3 (11.6-14.8) % Plt Count 298 (150-400) X10^3/uL Neut % (Auto) 76.6 H (50-75) % Lymph % (Auto) 15.7 L (25-40) % [place] % (Auto) 4.3 (3-14) % Eos % (Auto) 1.4 L (2-4) % Baso % (Auto) 2.0 (0-2) % Neut # (Auto) 6600 (2059-8333) /uL Lymph # (Auto) 1400 (2575-1151) /uL [place] # (Auto) 400 (0-900) /uL Eos # (Auto) 100 (0-450) /uL Baso # (Auto) 200 H (0-100) /uL Total Counted Cancelled Seg Neutrophils % Cancelled Band Neutrophils % Cancelled Lymphocytes % (Manual) Cancelled Atypical Lymphs % Cancelled Monocytes % (Manual) Cancelled Eosinophils % (Manual) Cancelled Basophils % (Manual) Cancelled Metamyelocytes % Cancelled Myelocytes % Cancelled Promyelocytes % Cancelled Blast Cells % Cancelled Neutrophils # (Manual) Cancelled Nucleated RBCs Cancelled Differential Comment Cancelled Hypersegmented Neuts Cancelled Reactive Lymphocytes Cancelled Plasma Cells Cancelled Smudge Cells Cancelled Other Cell Type Cancelled Toxic Granulation Cancelled Toxic Vacuolation Cancelled Dohle Bodies Cancelled Joselin Rods Cancelled WBC Morphology Comment Cancelled Platelet Estimate Cancelled Clumped Platelets Cancelled Plt Morphology Comment Cancelled RBC Morphology Cancelled Dimorphic RBCs Cancelled Polychromasia Cancelled Hypochromasia Cancelled Poikilocytosis Cancelled Basophilic Stippling Cancelled Anisocytosis Cancelled Microcytosis Cancelled Macrocytosis Cancelled Spherocytes Cancelled Pappenheimer Bodies Cancelled Sickle Cells Cancelled Target Cells Cancelled Tear Drop Cells Cancelled Ovalocytes Cancelled Stomatocytes Cancelled Helmet Cells Cancelled [place] Bodies Cancelled [place] Rings Cancelled Cuervo Cells Cancelled Acanthocytes (Spur) Cancelled Rouleaux Cancelled Schistocytes Cancelled Sodium 139 (137-145) mmol/L Potassium 3.5 (3.4-5.1) mmol/L Chloride 104 (98-107) mmol/L Carbon Dioxide 27 (22-32) mmol/L BUN 7 (7-17) mg/dL Creatinine 0.60 (0.52-1.04) mg/dL Estimated GFR > 60.0 (>60) mL/min BUN/Creatinine Ratio 11.7 (6-22) Glucose 107 H (70-100) mg/dL Calcium 9.5 (8.4-10.2) mg/dL Total Bilirubin 0.3 (0.2-1.3) mg/dL AST 37 H (14-36) IU/L ALT 22 (<35) IU/L Alkaline Phosphatase 58 (38-126) U/L Total Protein 7.2 (6.3-8.2) g/dL Albumin 4.6 (3.5-5.0) g/dL Globulin 2.6 (1.7-4.1) g/dL Albumin/Globulin Ratio 1.8 (1.0-2.8) Lipase 132 (23-300) U/L Serum , Qual (Negative) [place] 1.1 (0.6-1.2) mmol/L 04/20/21 Range/Units 21:45 WBC (4.5-11.0) X10^3/uL RBC (4.0-5.2) X10^6/uL Hgb (12.0-16.0) g/dL Hct (36-46) % MCV (80-100) fL MCH (26-34) PG MCHC (30-36) % RDW (11.6-14.8) % Plt Count (150-400) X10^3/uL Neut % (Auto) (50-75) % Lymph % (Auto) (25-40) % [place] % (Auto) (3-14) % Eos % (Auto) (2-4) % Baso % (Auto) (0-2) % Neut # (Auto) (0718-7362) /uL Lymph # (Auto) (6266-7468) /uL [place] # (Auto) (0-900) /uL Eos # (Auto) (0-450) /uL Baso # (Auto) (0-100) /uL Total Counted Seg Neutrophils % Band Neutrophils % Lymphocytes % (Manual) Atypical Lymphs % Monocytes % (Manual) Eosinophils % (Manual) Basophils % (Manual) Metamyelocytes % Myelocytes % Promyelocytes % Blast Cells % Neutrophils # (Manual) Nucleated RBCs Differential Comment Hypersegmented Neuts Reactive Lymphocytes Plasma Cells Smudge Cells Other Cell Type Toxic Granulation Toxic Vacuolation Dohle Bodies Joselin Rods WBC Morphology Comment Platelet Estimate Clumped Platelets Plt Morphology Comment RBC Morphology Dimorphic RBCs Polychromasia Hypochromasia Poikilocytosis Basophilic Stippling Anisocytosis Microcytosis Macrocytosis Spherocytes Pappenheimer Bodies Sickle Cells Target Cells Tear Drop Cells Ovalocytes Stomatocytes Helmet Cells [place] Bodies [place] Rings Tim Cells Acanthocytes (Spur) Rouleaux Schistocytes Sodium (137-145) mmol/L Potassium (3.4-5.1) mmol/L Chloride (98-107) mmol/L Carbon Dioxide (22-32) mmol/L BUN (7-17) mg/dL Creatinine (0.52-1.04) mg/dL Estimated GFR (>60) mL/min BUN/Creatinine Ratio (6-22) Glucose (70-100) mg/dL Calcium (8.4-10.2) mg/dL Total Bilirubin (0.2-1.3) mg/dL AST (14-36) IU/L ALT (<35) IU/L Alkaline Phosphatase (38-126) U/L Total Protein (6.3-8.2) g/dL Albumin (3.5-5.0) g/dL Globulin (1.7-4.1) g/dL Albumin/Globulin Ratio (1.0-2.8) Lipase (23-300) U/L Serum , Qual Negative (Negative) [place] (0.6-1.2) mmol/L MDM Narrative Medical decision making narrative: Patient is a benign exam. She is not toxic on her lithium. She was able to tolerate oral intake. I feel that we can hold on further workup to include any radiologic studies for now. Patient has nausea medication at home. However continue this as directed. She was given return precautions and follow-up instructions. She expressed understanding and agreement. Discharge Plan Departure Patient Disposition: Home Clinical Impression: Nausea and vomiting, Abdominal pain Instructions: DI for Nausea -- Adult, DI for Vomiting -- Adult Activity Restrictions/Additional Instructions: Your lab test to include your lithium level are all within normal limits. Continue all of your medications as directed. Contact your primary provider for a follow-up. Return to the emergency department for any new or worsening symptoms Prescriptions: No Action Mag Glycinate 100 mg tablet 200 mg PO TID RF: 0 l-theanine 200 mg PO TID RF: 0 promethazine 25 mg tablet 25 mg PO Q6HP PRN (Reason: nausea and vomiting) Qty: 60 RF: 12 ondansetron 4 mg tablet,disintegrating 4 mg PO Q6H PRN (Reason: nausea and vomiting) Qty: 30 RF: 1 metformin 500 mg tablet 250 mg PO .COMPLEX Qty: 60 RF: 0 clonidine HCl 0.1 mg tablet 0.1 mg PO BEDTIME PRN (Reason: sleep) Qty: 90 RF: 1 lamotrigine 100 mg tablet 200 mg PO DAILY Qty: 180 RF: 1 lithium carbonate 300 mg capsule 600 mg PO BEDTIME Qty: 180 RF: 1 quetiapine 50 mg tablet See Rx Instructions PO DAILY 30 Days Qty: 90 RF: 1 dextroamphetamine-amphetamine 30 mg capsule,extended release 24hr 30 mg PO QAM Qty: 30 RF: 0 omeprazole 20 mg capsule,delayed release(DR/EC) 20 mg PO BID Qty: 180 RF: 3 pregabalin 100 mg capsule See Rx Instructions .ROUTE .COMPLEX Qty: 180 RF: 1 Referrals: Mayte Martinez MD [Primary Care Provider] -
[2021-03-20 22:15] LABS: Alanine Aminotransferase 22 IU/L (<35); Albumin 4.6 g/dL (3.5-5.0); Albumin Globulin Ratio 1.8 (1.0-2.8); Alkaline Phosphatase 58 U/L (38-126); Aspartate Aminotransferase 37 IU/L (14-36); BUN Creatinine Ratio 11.7 (6-22); Bilirubin Total 0.3 mg/dL (0.2-1.3); Blood Urea Nitrogen 7 mg/dL (7-17); Calcium 9.5 mg/dL (8.4-10.2); Carbon Dioxide 27 mmol/L (22-32); Chloride 104 mmol/L (98-107); Estimated Glomerular Filt Rate > 60.0 mL/min (>60); Globulin 2.6 g/dL (1.7-4.1); Glucose 107 mg/dL (70-100); HEMOLYSIS 20 (0-50); Lipase 132 U/L (23-300); Potassium 3.5 mmol/L (3.4-5.1); Sodium 139 mmol/L (137-145); Total Protein 7.2 g/dL (6.3-8.2)
[2021-03-20 22:17] LABS: Lithium 1.1 mmol/L (0.6-1.2)
[2021-03-20 22:20] LABS: Pregnancy Test Serum,Qual Negative (Negative)
--- NOTE | 2021-03-20 22:33 | PC.NURSE ---
Patient recently had a change in medication and felt fine until after dinner tonight when she became nauseous and threw up. Has abdominal pain and nausea.
[2021-03-20 23:23] VITALS: BP 131/64; PULSE 82; RESP 16; O2SAT 98
== END 2021-03-20 23:24 | disposition home or self-care (01) ==
PROVIDERS: Emergency Provider Emergency Medicine; PCP Family Medicine
DX: R11.2 Nausea with vomiting, unspecified (principal); R10.9 Unspecified abdominal pain
CPT/HCPCS: 36415; 80053; 80178; 83690; 84703; 85025; 96361; 96374; 99284; C9113

== ENCOUNTER → 2024-06-08 08:45 | Outpatient (CLI) | payer OTHER, MEDICAID, SELFPAY ==
--- NOTE | 2024-06-08 08:47 | DI.RAD.S_ITS ---
PROCEDURE: XR ELBOW LT MIN 3V INDICATIONS: elbow pain TECHNIQUE: 3 views of the elbow were acquired. COMPARISON: None. FINDINGS: Bones: No fractures or dislocations. No suspicious bony lesions. Soft tissues: No elbow joint effusion. No suspicious soft tissue calcifications. IMPRESSION: No visualized acute fracture or dislocation. However, if clinical concern and/or pain persist, short interval imaging followup in 7-10 days is recommended, as occult injury cannot be definitively excluded. Dictated by: Mare You M.D. on 06/08/2024 at 12:43 Approved by: Mare You M.D. on 06/08/2024 at 13:02
--- NOTE | 2024-06-08 08:47 | DI.RAD.S_ITS ---
PROCEDURE: XR ELBOW RT MIN 3V INDICATIONS: elbow pain TECHNIQUE: 3 views of the elbow were acquired. COMPARISON: None. FINDINGS: Bones: No fractures or dislocations. No suspicious bony lesions. Soft tissues: No elbow joint effusion. No suspicious soft tissue calcifications. IMPRESSION: No visualized acute fracture or dislocation. However, if clinical concern and/or pain persist, short interval imaging followup in 7-10 days is recommended, as occult injury cannot be definitively excluded. Dictated by: Mare You M.D. on 06/08/2024 at 13:02 Approved by: Mare You M.D. on 06/08/2024 at 13:15
--- NOTE | 2024-06-08 08:47 | DI.RAD.S_ITS ---
PROCEDURE: XR HIP W PEL IF DONE ROSALBA MIN 4V INDICATIONS: hip pain TECHNIQUE: AP pelvis with lateral view(s) of the bilateral hip(s). COMPARISON: CT, CT ABDOMEN PELVIS W CON, 05/20/2020, 18:33. FINDINGS: Bones: No fractures or dislocations. Pelvic ring appears intact. No suspicious bony lesions. Soft tissues: The visualized bowel gas pattern is normal. No suspicious soft tissue calcifications. IMPRESSION: No acute bony abnormality. Dictated by: Mare You M.D. on 06/08/2024 at 12:43 Approved by: Mare You M.D. on 06/08/2024 at 12:43
[2024-06-08 10:07] LABS: Add Manual Diff / Slide Review NO; Basophils Absolute Auto 0 /uL (0-100); Basophils Percent Auto 0.4 % (0-2); Eosinophils Absolute Auto 200 /uL (0-450); Eosinophils Percent Auto 1.5 % (2-4); Hematocrit 43.1 % (36-46); Hemoglobin 14.4 g/dL (12.0-16.0); Lymphocytes Absolute Auto 2400 /uL (1100-4500); Mean Corpuscular HGB Conc 33.5 % (30-36); Mean Corpuscular Hemoglobin 29.3 PG (26-34); Mean Corpuscular Volume 87.7 fL (80-100); Monocytes Absolute Auto 700 /uL (0-900); Monocytes Percent Auto 6.4 % (3-14); Neutrophils Absolute Auto 8200 /uL (1500-7000); Neutrophils Percent Auto 70.7 % (50-75); Platelet Count 377 X10^3/uL (150-400); Red Blood Cell Count 4.92 X10^6/uL (4.0-5.2); Red Cell Distribution Width 13.7 % (11.6-14.8); White Blood Cell Count 11.6 X10^3/uL (4.5-11.0)
[2024-06-08 10:37] LABS: C-Reactive Protein Quant < 0.5 mg/dL (<1.0)
[2024-06-08 10:40] LABS: Rheumatoid Factor < 8.6 IU/mL (<12.0)
[2024-06-08 10:41] LABS: Erythrocyte Sedimentation Rate 2 MM/HR (0-20)
[2024-06-10 11:36] LABS: CCP Antibodies IgG/IgA 0 units (0-19)
== END ==
PROVIDERS: PCP Family Medicine; Referring Provider Family Medicine; Visit Provider Family Medicine
DX: Z13.828 Encounter for screening for other musculoskeletal disorder (principal); M79.7 Fibromyalgia; M25.559 Pain in unspecified hip; M25.529 Pain in unspecified elbow; M25.50 Pain in unspecified joint
CPT/HCPCS: 36415; 73080; 73522; 85025; 85651; 86140; 86200; 86430

== ENCOUNTER → 2024-06-25 11:08 | Outpatient (CLI) | payer OTHER, MEDICAID, SELFPAY ==
[2024-06-25 11:56] LABS: Add Manual Diff / Slide Review NO; Basophils Absolute Auto 100 /uL (0-100); Basophils Percent Auto 0.6 % (0-2); Eosinophils Absolute Auto 200 /uL (0-450); Eosinophils Percent Auto 1.9 % (2-4); Hematocrit 44.7 % (36-46); Lymphocytes Absolute Auto 3400 /uL (1100-4500); Lymphocytes Percent Auto 30.2 % (25-40); Mean Corpuscular HGB Conc 33.6 % (30-36); Mean Corpuscular Hemoglobin 29.4 PG (26-34); Mean Corpuscular Volume 87.6 fL (80-100); Monocytes Absolute Auto 500 /uL (0-900); Monocytes Percent Auto 4.9 % (3-14); Neutrophils Absolute Auto 7000 /uL (1500-7000); Neutrophils Percent Auto 62.4 % (50-75); Platelet Count 372 X10^3/uL (150-400); Red Cell Distribution Width 13.7 % (11.6-14.8); White Blood Cell Count 11.2 X10^3/uL (4.5-11.0)
[2024-06-25 12:22] LABS: Alanine Aminotransferase 57 IU/L (<35); Albumin 4.6 g/dL (3.5-5.0); Albumin Globulin Ratio 1.8 (1.0-2.8); Alkaline Phosphatase 77 U/L (38-126); Aspartate Aminotransferase 49 IU/L (14-36); BUN Creatinine Ratio 10.9 (6-22); Bilirubin Total 0.6 mg/dL (0.2-1.3); Blood Urea Nitrogen 10 mg/dL (7-17); Calcium 9.3 mg/dL (8.4-10.2); Carbon Dioxide 25 mmol/L (22-32); Chloride 107 mmol/L (98-107); Estimated Glomerular Filt Rate > 60 mL/min (>60); Globulin 2.5 g/dL (1.7-4.1); Glucose 135 mg/dL (70-100); HEMOLYSIS < 15 (0-50); Potassium 4.6 mmol/L (3.4-5.1); Sodium 140 mmol/L (137-145); Total Protein 7.1 g/dL (6.3-8.2)
== END ==
PROVIDERS: PCP Family Medicine; Referring Provider Family Medicine; Visit Provider Family Medicine
DX: M25.50 Pain in unspecified joint (principal)
CPT/HCPCS: 36415; 80053; 85025

== ENCOUNTER → 2024-07-05 10:12 | Outpatient (CLI) | payer OTHER, MEDICAID, SELFPAY ==
--- NOTE | 2024-07-05 10:12 | DI.US.S_ITS ---
PROCEDURE: US ABDOMEN LIMITED INDICATIONS: elevated liver enzymes TECHNIQUE: Real-time focused scanning was performed of the abdomen, with image documentation. COMPARISON: [facility], CT, CT ABDOMEN PELVIS W CON, 05/20/2020, 18:33. FINDINGS: The liver demonstrates enlarged size. The liver demonstrates generalized prominently increased echogenicity. This decreases ultrasound sensitivity for detection of hepatic masses. There is a simple cyst within the left lobe of the liver that measures up to 2.2 cm. The main portal vein demonstrates normal size and demonstrates normal appearing, hepatopetal flow. Status post cholecystectomy, without biliary dilatation. The common bile duct measures 5 mm. No significant pancreatic abnormality is seen on these images. No free fluid can be seen. IMPRESSION: Enlarged, fatty liver. Status post cholecystectomy, without biliary dilatation. Dictated by: Syed Cloud M.D. on 07/05/2024 at 14:08 Approved by: Syed Cloud M.D. on 07/05/2024 at 14:09
== END ==
PROVIDERS: PCP Family Medicine; Referring Provider Family Medicine; Visit Provider Family Medicine
DX: K76.89 Other specified diseases of liver (principal); K76.0 Fatty (change of) liver, not elsewhere classified; R74.8 Abnormal levels of other serum enzymes; Z90.49 Acquired absence of other specified parts of digestive tract
CPT/HCPCS: 76705

== ENCOUNTER → 2024-07-23 14:14 | Outpatient (CLI) | payer OTHER, MEDICAID, SELFPAY ==
--- NOTE | 2024-07-23 14:16 | DI.MG.S_ITS ---
BILATERAL DIGITAL SCREENING MAMMOGRAM 3D/2D WITH CAD: 07/23/2024 CLINICAL: Routine screening. Baseline exam. Family history of breast cancer. No prior exams were available for comparison. Both breasts are heterogeneously dense, which may obscure small masses (category c / 51-75% glandular tissue). Current study was also evaluated with a Computer Aided Detection (CAD) system. No significant masses, calcifications, or other findings are seen in either breast. IMPRESSION: NEGATIVE There is no mammographic evidence of malignancy. A 1 year screening mammogram is recommended. Based on the Tyrer Cuzick model (a risk assessment model) the patient's lifetime risk is 17.1% and her 10 year risk is 2.2%. According to the ACR, ACS, and NCCN guidelines, an annual breast MRI exam along with mammogram is recommended if the patient's lifetime risk is 20% or greater. This exam was interpreted at Station ID: [id number]. NOTE: For mammograms, a report in lay terms will be sent to the patient. Approximately 15% of breast malignancies will not be visualized mammographically. In the management of a palpable breast mass, a negative mammogram must not discourage biopsy of a clinically suspicious lesion. Electronically Signed By: Marcin hadley/barbara:07/23/2024 15:17:56 letter sent: Normal Exam ACR BI-RADS Category 1: Negative [id number]
== END ==
LOC: MAMMO 14:16
PROVIDERS: PCP Family Medicine; Referring Provider Family Medicine; Visit Provider Family Medicine
DX: Z12.31 Encounter for screening mammogram for malignant neoplasm of breast (principal); Z80.3 Family history of malignant neoplasm of breast; R92.333 Mammographic heterogeneous density, bilateral breasts
CPT/HCPCS: 77063; 77067

== ENCOUNTER → 2024-12-10 07:39 | Outpatient (CLI) | payer OTHER, SELFPAY ==
[2024-12-10 08:14] LABS: Add Manual Diff / Slide Review NO; Basophils Absolute Auto 100 /uL (0-100); Basophils Percent Auto 0.7 % (0-2); Eosinophils Absolute Auto 200 /uL (0-450); Hematocrit 43.2 % (36-46); Hemoglobin 14.3 g/dL (12.0-16.0); Lymphocytes Absolute Auto 1900 /uL (1100-4500); Lymphocytes Percent Auto 22.6 % (25-40); Mean Corpuscular Hemoglobin 29.7 PG (26-34); Mean Corpuscular Volume 89.9 fL (80-100); Monocytes Absolute Auto 400 /uL (0-900); Monocytes Percent Auto 4.7 % (3-14); Neutrophils Absolute Auto 6100 /uL (1500-7000); Platelet Count 361 X10^3/uL (150-400); Red Blood Cell Count 4.81 X10^6/uL (4.0-5.2); Red Cell Distribution Width 14.1 % (11.6-14.8); White Blood Cell Count 8.6 X10^3/uL (4.5-11.0)
[2024-12-10 08:54] LABS: Lithium 0.9 mmol/L (0.6-1.2)
[2024-12-10 08:56] LABS: Alanine Aminotransferase 20 IU/L (<35); Albumin 4.5 g/dL (3.5-5.0); Albumin Globulin Ratio 2.3 (1.0-2.8); Alkaline Phosphatase 62 U/L (38-126); Aspartate Aminotransferase 24 IU/L (14-36); Bilirubin Total 0.3 mg/dL (0.2-1.3); Blood Urea Nitrogen 13 mg/dL (7-17); Calcium 10.5 mg/dL (8.4-10.2); Carbon Dioxide 28 mmol/L (22-32); Chloride 105 mmol/L (98-107); Cholesterol 234 mg/dL (140-199); Estimated Glomerular Filt Rate > 60 mL/min (>60); Glucose 93 mg/dL (70-100); HDL Cholesterol 68 mg/dL (40-60); HEMOLYSIS < 15 (0-50); LDL Cholesterol Calculated 144 mg/dL (<100); Sodium 138 mmol/L (137-145); Total Protein 6.5 g/dL (6.3-8.2); Triglycerides 111 mg/dL (35-150)
[2024-12-10 09:21] LABS: TSH w/ Reflex to FT4 1.84 uIU/mL (0.47-4.68)
== END ==
PROVIDERS: Psychiatry & Neurology Psychiatry; PCP Family Medicine; Referring Provider Family Medicine; Visit Provider Family Medicine
DX: F90.0 Attention-deficit hyperactivity disorder, predominantly inattentive type (principal); F31.60 Bipolar disorder, current episode mixed, unspecified; Z79.899 Other long term (current) drug therapy
CPT/HCPCS: 36415; 80053; 80061; 80178; 83036; 84443; 85025